=== PATIENT | male | born 1990 | race African-American/Black ===

== ENCOUNTER 2023-12-22 18:12 | Inpatient (IN) ==
--- NOTE | 2023-12-22 18:28 | Emergency Department Note ---
Impression & Plan Seizure, Alcohol withdrawal, Vomiting, History of drug abuse ED Provider Note NAME: REYMUNDO CARTER AGE: 33 SEX: M : 1990 ARRIVES VIA: Ambulance INFORMANT: [Patient][ems] ED PROVIDER(S): [Donavan Doran MD] CHIEF COMPLAINT: Seizure HISTORY OF PRESENT ILLNESS: The patient is a 33-year-old male who presents from [facility]. He has been there for around 2 days. 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 Patient states that he does have a diagnosis of epilepsy. He is on 1000 mg of Depakote twice a day. He has not missed recent dosing. The patient had a seizure last evening and then around 6 today. He did bite his tongue once, no urinary incontinence. He did vomit once. He presents by ambulance. No medications given in route. The patient currently complains of some lower back pain but this is chronic. He has no headache. He is not short of breath, no abdominal pain. He states that the last time he had a seizure, about a months ago, it was detox related as well. PMHx/PSHx/Social Hx: See Below PHYSICAL EXAM: GENERAL: Patient is in no acute distress. HEENT: No acute trauma, normocephalic atraumatic, mucous membranes dry, no nasal congestion. NECK: No stridor, no adenopathy, no meningismus, trachea is midline. LUNGS: Clear to auscultation bilaterally, no wheeze, no rhonchi, breath sounds equal. HEART: Subtle systolic murmur, regular rate and rhythm. ABDOMEN: Soft, nontender, no peritonitis. EXTREMITIES: No cyanosis, full range of motion of all the joints without pain or difficulty. NEUROLOGIC: Oriented x 3, no acute motor or sensory deficits, no focal weakness. SKIN: No jaundice, no diaphoresis. DIFFERENTIAL DIAGNOSIS: Withdrawal, seizure, epilepsy, dehydration, electrolyte imbalance, renal failure, dysrhythmia, among others. EMERGENCY DEPARTMENT PROCEDURES: MEDICAL DECISION MAKING: There is no leukocytosis. A mild anemia was seen. There was a normal platelet count. No renal failure or significant electrolyte abnormality. No concerning liver enzyme elevation. Total CK was not elevated making rhabdomyolysis unlikely. TSH was somewhat low however, the T4 was normal. Urinalysis showed some white cells but no bacteria was seen. Urine tox was positive for amphetamines, benzodiazepines and marijuana. COVID, influenza and RSV test were negative. Chest x-ray did not show pneumonia or CHF. Brain CT showed no acute bleed or mass effect. On exam, the patient appeared slightly dehydrated. He was awake and interactive. He was not febrile. Patient was given IV saline with thiamine, folate and multivitamins. He received 500 mg of IV Depakote. He received a 500 cc saline bolus. He was given 2 mg of IV Ativan. Patient is doing well, he is resting. No seizure activity while here in the ED. The patient is in need of a hospital stay. I suspect his seizures are from withdrawal, likely from his alcohol withdrawal. I did speak with the patient, I did speak with case management. The on-call hospitalist was consulted. Prior/Outside records/notes reviewed: Today's EMS notes describing his presentation and transport to this hospital. ECG per my interpretation: Indication was seizure. The ECG shows a normal sinus rhythm with a rate of 78. There is no acute ST elevation, no PVCs. The QTc is 419. Continuous Cardiac Monitoring per my interpretation: An order was placed for continuous cardiac monitoring. The monitor shows a rate of 81 with normal sinus rhythm. Imaging/x-ray results per my interpretation: Chest x-ray did not show mediastinal widening, pneumonia or pneumothorax. Chronic Medical/Social conditions affecting care: History of drug abuse, history of alcohol abuse. Care/Management discussed with: Case management, the on-call hospitalist. Level of care consideration(s): After review of the information above and other included data: --I believe the patient requires escalation of care to admission DISPOSITION: Admission Past Med/Surg History Problem List (Updated 12/22/23 @ 21:39 by Donavan Doran MD) History of drug abuse (Acute) Vomiting (Acute) Alcohol withdrawal (Acute) Seizure (Acute) Alcohol withdrawal Epilepsy Seizures Medical History Withdrawal seizures Social History Smoking Status: Current every day smoker Tobacco Type: Cigarettes Feels Safe at Home: Yes Allergies Allergies Allergy/AdvReac Type Severity Reaction Status Date / Time acetaminophen Allergy Intermediate Hives Verified 12/22/23 19:02 ibuprofen Allergy Intermediate Hives Verified 12/22/23 19:02 tramadol Allergy Intermediate Hives Verified 12/22/23 19:02 Home Meds Home Medications Medication Instructions Recorded Confirmed albuterol sulfate 90 mcg/actuation 1 inh inhalation Q4H PRN Wheezing 12/22/23 12/22/23 aerosol inhaler aluminum-mag hydroxide-simethicone 20 ml PO BID PRN INDIGESTION/GERD 12/22/23 12/22/23 200 mg-200 mg-20 mg/5 mL oral susp bacitracin 500 unit/gram topical 1 applic topical QID PRN SKIN 12/22/23 12/22/23 ointment INFECTION/ABRASIONS bisacodyl 5 mg tablet 15 mg PO DAILY PRN Constipation 12/22/23 12/22/23 calcium carbonate (Tums) 400 mg PO QID PRN 12/22/23 12/22/23 INDIGESTION/DYSPEPSIA camphor-menthol 0.2 %-3.5 % 1 applic topical QID PRN Muscle 12/22/23 12/22/23 topical gel Pain clonidine HCl 0.1 mg tablet 0.1 mg PO TID PRN 12/22/23 12/22/23 ANXIETY/RESTLESSNESS/HR >70/BP >100/70 dicyclomine 20 mg tablet 20 mg PO TID PRN GI CRAMPS/SPASMS 12/22/23 12/22/23 diphenhydramine HCl 25 mg capsule 25 - 50 mg PO Q6H PRN 12/22/23 12/22/23 (Benadryl) ALLERGIES/RASH divalproex 500 mg tablet,extended 1,000 mg PO BID 12/22/23 12/22/23 release 24 hr (Depakote ER) docusate sodium 100 mg capsule 100 mg PO DAILY PRN Constipation 12/22/23 12/22/23 duloxetine 30 mg capsule,delayed 30 mg PO DAILY 12/22/23 12/22/23 release eucalyptus-menthol oral mucosal 1 nessa mucous membrane Q2H PRN Sore 12/22/23 12/22/23 lozenge Throat famotidine 20 mg tablet 20 mg PO DAILY PRN UPSET 12/22/23 12/22/23 STOMACH/GERD gabapentin 300 mg capsule 600 mg PO TID 12/22/23 12/22/23 guaifenesin 400 mg tablet (Mucus 400 mg PO Q6H PRN COUGH/MUCUS 12/22/23 12/22/23 Relief) hydrocortisone 1 % topical cream 1 applic topical BID PRN AFFECTED 12/22/23 12/22/23 AREA hydroxyzine pamoate 50 mg capsule 50 mg PO TID PRN Anxiety 12/22/23 12/22/23 lithium carbonate 300 mg capsule 300 mg PO BID 12/22/23 12/22/23 loperamide 2 mg tablet (Imodium 4 mg PO BID PRN Diarrhea 12/22/23 12/22/23 A-D) loratadine 10 mg tablet (Claritin) 10 mg PO DAILY PRN SEASONAL 12/22/23 12/22/23 ALLERGIES magnesium hydroxide 400 mg/5 mL 30 ml PO DAILY PRN Constipation 12/22/23 12/22/23 oral suspension (Milk of Magnesia) melatonin 5 mg tablet 5 mg PO HS PRN Sleep 12/22/23 12/22/23 mirtazapine 15 mg tablet 15 mg PO HS 12/22/23 12/22/23 multivitamin 1 tab PO DAILY 12/22/23 12/22/23 naloxone 4 mg/actuation nasal spray 4 mg intranasal DIRECTED PRN 12/22/23 12/22/23 OPIATE OVERDOSE naproxen 500 mg tablet 500 mg PO BID PRN Pain 12/22/23 12/22/23 ondansetron HCl 8 mg tablet 8 mg PO Q8H PRN NAUSEA/VOMITING 12/22/23 12/22/23 polyethylene glycol 3350 17 17 g PO DAILY PRN Constipation 12/22/23 12/22/23 gram/dose oral powder (Miralax) prazosin 1 mg capsule 1 mg PO HS 12/22/23 12/22/23 simethicone 80 mg chewable tablet 160 mg PO BID PRN GAS/CRAMPS 12/22/23 12/22/23 trazodone 50 mg tablet 50 mg PO HS 12/22/23 12/22/23 vitamin A and D 1 applic topical QID PRN SKIN 12/22/23 12/22/23 IRRITATION/PROTECTION Results & Data (ED) Vital Signs Vital Signs - 24 hr 12/22/23 18:22 12/22/23 18:25 12/22/23 18:29 Temperature 36.8 C Temperature Source Oral Pulse Rate 90 81 87 Pulse Rate [Apical] Pulse Rhythm Regular Regular Pulse Strength Normal Respiratory Rate 19 19 Respiratory Effort / Characteristics Non-Labored Spontaneous Respiratory Depth Normal Respiratory Pattern Regular Blood Pressure 144/77 H Blood Pressure [Right Arm] Blood Pressure Mean 99 Blood Pressure Mean [Right Arm] Pulse Oximetry 99 99 Oxygen Delivery Method Room Air Room Air Sepsis Recent Fever Within 48 Hours No Sepsis New/Unexplained Change in Mental Status No Sepsis Action Taken by Nursing No Action Required 12/22/23 19:14 12/22/23 20:19 Temperature 36.9 C Temperature Source Oral Pulse Rate Pulse Rate [Apical] 87 80 Pulse Rhythm Pulse Strength Respiratory Rate 24 19 Respiratory Effort / Characteristics Non-Labored Spontaneous Non-Labored Spontaneous Respiratory Depth Normal Normal Respiratory Pattern Regular Blood Pressure Blood Pressure [Right Arm] 129/81 127/77 Blood Pressure Mean Blood Pressure Mean [Right Arm] 97 93 Pulse Oximetry 100 99 Oxygen Delivery Method Room Air Room Air Sepsis Recent Fever Within 48 Hours Sepsis New/Unexplained Change in Mental Status Sepsis Action Taken by Snf Medications Current Medication List: was personally reviewed by me Laboratory Data Attestation: I reviewed the patient's lab results. 12/22/23 18:20 12/22/23 18:20 Lab Results 12/22/23 12/22/23 12/22/23 Range/Units 18:20 18:27 21:23 WBC 7.76 (4.8-10.8) K/ul RBC 4.35 L (4.70-6.10) M/uL Hgb 12.5 L (14.0-18.0) g/dl POC Hgb 12.6 L (14.0-18.0) g/dl Hct 37.2 L (42.0-52.0) % POC Hct 37 L (42-52) % MCV 85.5 (80.0-100.0) fL MCH 28.7 (25.0-34.0) pg MCHC 33.6 (32.0-36.0) g/dL RDW Std Deviation 42.1 (36.4-46.3) fL RDW Coeff of Hiro 13.4 (11.5-14.5) % Plt Count 284 (130-400) K/uL MPV 9.0 L (9.4-12.4) fL Immature Gran % (Auto) 0.3 % Neut % (Auto) 55.6 % Lymph % (Auto) 34.1 % [place]uel % (Auto) 6.2 % Eos % (Auto) 3.4 % Baso % (Auto) 0.4 % Neut # (Auto) 4.32 (1.40-6.50) K/uL Lymph # (Auto) 2.65 (1.20-3.40) K/uL [place]uel # (Auto) 0.48 (0.11-0.59) K/uL Eos # (Auto) 0.26 (0.00-0.50) K/uL Baso # (Auto) 0.03 (0.00-0.20) K/uL Immature Gran # (Auto) 0.02 (0.01-0.20) K/uL POC Sodium 141 (135-144) mmol/L Sodium 140 (136-145) mmol/L POC Potassium 4.3 (3.3-5.0) mmol/L Potassium 4.3 (3.5-5.1) mmol/L POC Chloride 105 (101-112) mmol/L Chloride 107 (98-107) mmol/L Carbon Dioxide 27 (21-32) mmol/L POC Total CO2 24 (24-31) mmol/L Anion Gap 6 (3-11) POC Anion Gap 18.0 (16-25) mmol/L POC BUN 5 L (7-18) mg/dl BUN 7 (6-23) mg/dl Creatinine 0.99 (0.6-1.4) mg/dl POC Creatinine 1.1 (0.6-1.3) mg/dl Est Cr Clr Drug Dosing 115.6 ml/min Est GFR ( Amer) 115.5 ml/min Est GFR (Non-Af Amer) 99.7 ml/min BUN/Creatinine Ratio 7.1 L (10-20) Glucose 79 (70-99(Fasting)) mg/dl POC Glucose 90 (70-99) mg/dl POC Glucose (other) 81 (70-99) mg/dl Calcium 9.1 (8.6-10.3) mg/dl POC Ioniz Calcium Joellen 1.14 (1.12-1.32) mmol/l Magnesium 2.0 (1.7-2.4) mg/dl Total Bilirubin 0.2 (0.2-1.0) mg/dl AST 11 L (13-39) U/L ALT 7 (7-52) U/L Alkaline Phosphatase 79 (34-104) U/L Total Creatine Kinase 116 (30-223) U/L Total Protein 6.7 (6.0-8.3) gm/dl Albumin 4.0 (3.4-5.0) gm/dl Globulin 2.7 (2.5-4.0) gm/dl Albumin/Globulin Ratio 1.5 (0.9-2) TSH 0.208 L (0.300-4.500) uIu/ml Free T4 0.72 (0.61-1.60) ng/dl Urine Color Urine Appearance (Clear) Urine pH (4.5-7.5) Ur Specific [place] (1.000-1.030) Urine Protein (Negative) Urine Glucose (UA) (Negative) Urine Ketones (Negative) Urine Blood (Negative) Urine Nitrite (Negative) Urine Bilirubin (Negative) Urine Urobilinogen (Negative) Ur Leukocyte Esterase (Negative) Urine WBC (Auto) (0-5) /hpf Urine RBC (Auto) (0-2) /hpf U Hyaline Cast (Auto) (0-2) /lpf U Epithel Cells (Auto) (0-2) /hpf Urine Bacteria (Auto) (None Seen) Urine Opiates Screen (Neg) Ur Methadone, Qual (Neg) Urine Fentanyl Screen (Neg) Urine Barbiturates (Neg) Valproic Acid 84 (50-100) mcg/ml Ur Phencyclidine (PCP) (Neg) U Amphetamin/Meth Scrn (Neg) MDMA (Ecstasy) Screen (Neg) U Benzodiazepines Scrn (Neg) Ur Cocaine Metabolite (Neg) U Marijuana (THC) Screen (Neg) SARS-CoV-2 (PCR) (Negative) Influenza Type A (PCR) (Neg) Influenza Type B (PCR) (Neg) RSV (RT-PCR) (Neg) 12/22/23 Range/Units Unknown WBC (4.8-10.8) K/ul RBC (4.70-6.10) M/uL Hgb (14.0-18.0) g/dl POC Hgb (14.0-18.0) g/dl Hct (42.0-52.0) % POC Hct (42-52) % MCV (80.0-100.0) fL MCH (25.0-34.0) pg MCHC (32.0-36.0) g/dL RDW Std Deviation (36.4-46.3) fL RDW Coeff of Hiro (11.5-14.5) % Plt Count (130-400) K/uL MPV (9.4-12.4) fL Immature Gran % (Auto) % Neut % (Auto) % Lymph % (Auto) % [place] % (Auto) % Eos % (Auto) % Baso % (Auto) % Neut # (Auto) (1.40-6.50) K/uL Lymph # (Auto) (1.20-3.40) K/uL Deuel # (Auto) (0.11-0.59) K/uL Eos # (Auto) (0.00-0.50) K/uL Baso # (Auto) (0.00-0.20) K/uL Immature Gran # (Auto) (0.01-0.20) K/uL POC Sodium (135-144) mmol/L Sodium (136-145) mmol/L POC Potassium (3.3-5.0) mmol/L Potassium (3.5-5.1) mmol/L POC Chloride (101-112) mmol/L Chloride (98-107) mmol/L Carbon Dioxide (21-32) mmol/L POC Total CO2 (24-31) mmol/L Anion Gap (3-11) POC Anion Gap (16-25) mmol/L POC BUN (7-18) mg/dl BUN (6-23) mg/dl Creatinine (0.6-1.4) mg/dl POC Creatinine (0.6-1.3) mg/dl Est Cr Clr Drug Dosing ml/min Est GFR ( Amer) ml/min Est GFR (Non-Af Amer) ml/min BUN/Creatinine Ratio (10-20) Glucose (70-99(Fasting)) mg/dl POC Glucose (70-99) mg/dl POC Glucose (other) (70-99) mg/dl Calcium (8.6-10.3) mg/dl POC Ioniz Calcium Joellen (1.12-1.32) mmol/l Magnesium (1.7-2.4) mg/dl Total Bilirubin (0.2-1.0) mg/dl AST (13-39) U/L ALT (7-52) U/L Alkaline Phosphatase (34-104) U/L Total Creatine Kinase (30-223) U/L Total Protein (6.0-8.3) gm/dl Albumin (3.4-5.0) gm/dl Globulin (2.5-4.0) gm/dl Albumin/Globulin Ratio (0.9-2) TSH (0.300-4.500) uIu/ml Free T4 (0.61-1.60) ng/dl Urine Color Yellow Urine Appearance Clear (Clear) Urine pH 7.5 (4.5-7.5) Ur Specific [place] 1.019 (1.000-1.030) Urine Protein Negative (Negative) Urine Glucose (UA) Negative (Negative) Urine Ketones Trace H (Negative) Urine Blood Negative (Negative) Urine Nitrite Negative (Negative) Urine Bilirubin Negative (Negative) Urine Urobilinogen Negative (Negative) Ur Leukocyte Esterase 1+ H (Negative) Urine WBC (Auto) 11-20 H (0-5) /hpf Urine RBC (Auto) 0-2 (0-2) /hpf U Hyaline Cast (Auto) 0-2 (0-2) /lpf U Epithel Cells (Auto) 0-2 (0-2) /hpf Urine Bacteria (Auto) None Seen (None Seen) Urine Opiates Screen Neg (Neg) Ur Methadone, Qual Neg (Neg) Urine Fentanyl Screen Neg (Neg) Urine Barbiturates Neg (Neg) Valproic Acid (50-100) mcg/ml Ur Phencyclidine (PCP) Neg (Neg) U Amphetamin/Meth Scrn Pos H (Neg) MDMA (Ecstasy) Screen Neg (Neg) U Benzodiazepines Scrn Pos H (Neg) Ur Cocaine Metabolite Neg (Neg) U Marijuana (THC) Screen Pos H (Neg) SARS-CoV-2 (PCR) NEGATIVE (Negative) Influenza Type A (PCR) Negative (Neg) Influenza Type B (PCR) Negative (Neg) RSV (RT-PCR) Negative (Neg) Administered Medications Discontinued Medications Multivitamins 10 ml/ Thiamine HCl 100 mg/ Folic Acid 1 mg/Sodium Chloride 1,011.2 mls @ 500 mls/hr IV .Q2H2M ONE Stop: 12/22/23 20:24 Last Infusion: 12/22/23 21:25 Dose: Infused Documented By: Admin: 12/22/23 19:20 Dose: 500 mls/hr Documented By: MALIA Valproic Acid 500 mg/ Dextrose 55 mls @ 55 mls/hr IV NOW STA Stop: 12/22/23 19:22 Last Infusion: 12/22/23 20:39 Dose: Infused Documented By: Admin: 12/22/23 18:50 Dose: 55 mls/hr Documented By: JAROCHO Sodium Chloride (Nss) 500 mls @ 999 mls/hr IV .Q31M ONE Stop: 12/22/23 18:58 Last Infusion: 12/22/23 19:23 Dose: Infused Documented By: Admin: 12/22/23 18:33 Dose: 999 mls/hr Documented By: MALIA Lorazepam (Lorazepam 1 Mg/1 Ml Syr Ed Inj Use) 2 mg IV ONE STA Stop: 12/22/23 18:24 Last Admin: 12/22/23 18:30 Dose: 2 mg Documented By: MALIA Imaging Data Radiologist's Impression: Head CT 12/22/23 18:23 CT head/brain wo con CLINICAL HISTORY: seizure Technique: Contiguous axial CT images of the head were acquired from the base of the skull to the vertex without intravenous contrast administration. Images were viewed in brain, subdural and bone windows. Automated dose lowering techniques and/or adjustment according to patient size were utilized for this exam. Comparison: None available at the time of this dictation. Findings: The ventricles, basal cisterns, and cerebral sulci are normal. There is no acute intracranial hemorrhage or evidence of acute territorial infarction. Neither mass effect, shift of the midline structures, nor abnormal extra-axial fluid collections are shown. Right sinus opacification is seen. The orbits appear normal. There are no acute fractures of the calvaria or scalp swelling. Impression: 1. No acute intracranial hemorrhage, no evidence of acute territorial infarction or other acute intracranial disease process. 2. Right paranasal sinus disease. ACT 112: Negative or not required by law. Electronically signed by: Dontae Giang M.D. 12/22/2023 7:47 PM Chest X-Ray 12/22/23 18:25 XR chest 1V portable CLINICAL HISTORY: weakness TECHNIQUE: Single frontal radiograph of the chest was obtained. Comparison: None available at the time of this dictation. FINDINGS: No lines and tubes are seen. The cardiomediastinal silhouette is normal. The lungs are clear. No evidence of pleural effusion or pneumothorax. IMPRESSION: No acute chest disease. ACT 112: Negative or not required by law. Electronically signed by: Dontae Giang M.D. 12/22/2023 6:41 PM Discharge Plan Visit Data Chief Complaint: Seizure Stated Complaint: DETOXING, SEIZURES ED Provider: Donavan Doran Discharge Problem: Seizure, Alcohol withdrawal, Vomiting, History of drug abuse Patient Disposition: Admitted As Inpatient Condition: Fair Forms Stand Alone Forms: [facility] Prescriptions Prescriptions: No Action multivitamin Tablet 1 tab PO DAILY clonidine HCl 0.1 mg Tablet 0.1 mg PO TID PRN (Reason: ANXIETY/RESTLESSNESS/HR >70/BP >100/70) trazodone 50 mg Tablet 50 mg PO HS prazosin 1 mg Capsule 1 mg PO HS ondansetron HCl [Zofran] 8 mg Tablet 8 mg PO Q8H PRN (Reason: NAUSEA/VOMITING) vitamin A and D Ointment 1 applic TOPICAL QID PRN (Reason: SKIN IRRITATION/PROTECTION) loperamide [Imodium A-D] 2 mg Tablet 4 mg PO BID PRN (Reason: Diarrhea) hydroxyzine pamoate 50 mg Capsule 50 mg PO TID PRN (Reason: Anxiety) bacitracin 500 unit/gram Ointment 1 applic TOPICAL QID PRN (Reason: SKIN INFECTION/ABRASIONS) famotidine 20 mg Tablet 20 mg PO DAILY PRN (Reason: UPSET STOMACH/GERD) magnesium hydroxide [Milk of Magnesia] 400 mg/5 mL Suspension 30 ml PO DAILY PRN (Reason: Constipation) dicyclomine 20 mg Tablet 20 mg PO TID PRN (Reason: GI CRAMPS/SPASMS) lithium carbonate 300 mg Capsule 300 mg PO BID hydrocortisone [Cortaid Maximum Strength] 1 % Cream 1 applic TOPICAL BID PRN (Reason: AFFECTED AREA) diphenhydramine HCl [Benadryl] 25 mg Capsule 25 - 50 mg PO Q6H PRN (Reason: ALLERGIES/RASH) divalproex [Depakote ER] 500 mg Tablet Extended Release 24 Hr 1,000 mg PO BID calcium carbonate [Tums] 200 mg calcium (500 mg) Tablet,Chewable 400 mg PO QID PRN (Reason: INDIGESTION/DYSPEPSIA) docusate sodium 100 mg Capsule 100 mg PO DAILY PRN (Reason: Constipation) gabapentin 300 mg Capsule 600 mg PO TID mirtazapine 15 mg Tablet 15 mg PO HS alum-mag hydroxide-simeth [Maalox] 200-200-20 mg/5 mL Suspension 20 ml PO BID PRN (Reason: INDIGESTION/GERD) polyethylene glycol 3350 [Miralax] 17 gram/dose Powder 17 g PO DAILY PRN (Reason: Constipation) albuterol sulfate 90 mcg/actuation Hfa Aerosol Inhaler 1 inh INHALATION Q4H PRN (Reason: Wheezing) loratadine [Claritin] 10 mg Tablet 10 mg PO DAILY PRN (Reason: SEASONAL ALLERGIES) naproxen 500 mg Tablet 500 mg PO BID PRN (Reason: Pain) simethicone [Gas-X] 80 mg Tablet,Chewable 160 mg PO BID PRN (Reason: GAS/CRAMPS) bisacodyl 5 mg Tablet 15 mg PO DAILY PRN (Reason: Constipation) [place] Cough Drops Lozenge 1 nessa MUCOUS MEMBRANE Q2H PRN (Reason: Sore Throat) guaifenesin [Mucus Relief] 400 mg Tablet 400 mg PO Q6H PRN (Reason: COUGH/MUCUS) duloxetine 30 mg Capsule,Delayed Release(Dr/Ec) 30 mg PO DAILY melatonin 5 mg Tablet 5 mg PO HS PRN (Reason: Sleep) Biofreeze 0.2-3.5 % Gel 1 applic TOPICAL QID PRN (Reason: Muscle Pain) Rx Instructions: rub in gently and completely naloxone 4 mg/actuation [place],Non-Aerosol 4 mg INTRANASAL DIRECTED MDD 6 SPRAYS PRN (Reason: OPIATE OVERDOSE) Referrals Referrals: PCP,NO [Physician] - Discharge Problem: Alcohol withdrawal Qualifiers: Complication of substance-induced condition: with unspecified complication Q ualified Code(s): F10.939 - Alcohol use, unspecified with withdrawal, unspecified Vomiting Qualifiers: Vomiting type: unspecified Nausea presence: with nausea Qualified Code(s): R 11.2 - Nausea with vomiting, unspecified
[2023-12-22] MEDS: LORazepam 1 MG/1 ML SYR ED Inj Use IV STA (18:30)
[2023-12-22] MEDS: SODIUM CHLORIDE 0.9% 500 ML IV ONE (18:33)
[2023-12-22 18:39] LABS: iSTAT Creatinine 1.1 mg/dl (0.6-1.3); iSTAT Hemoglobin 12.6 g/dl (14.0-18.0); iSTAT Ionized Calcium 1.14 mmol/l (1.12-1.32); iSTAT Potassium 4.3 mmol/L (3.3-5.0)
[2023-12-22 18:39] LABS: Basophils # (auto) 0.03 K/uL (0.00-0.20); Basophils % (auto) 0.4 %; Eosinophils # (auto) 0.26 K/uL (0.00-0.50); Eosinophils % (auto) 3.4 %; Hematocrit (blood only) 37.2 % (42.0-52.0); Hemoglobin 12.5 g/dl (14.0-18.0); Immature Granulocytes # (auto) 0.02 K/uL (0.01-0.20); Immature Granulocytes % (auto) 0.3 %; Lymphocytes # (auto) 2.65 K/uL (1.20-3.40); Lymphocytes % (auto) 34.1 %; Mean Corpuscular Hemoglobin 28.7 pg (25.0-34.0); Mean Corpuscular Hgb Conc 33.6 g/dL (32.0-36.0); Mean Corpuscular Volume 85.5 fL (80.0-100.0); Monocytes # (auto) 0.48 K/uL (0.11-0.59); Monocytes % (auto) 6.2 %; Neutrophils # (auto) 4.32 K/uL (1.40-6.50); Neutrophils % (auto) 55.6 %; Platelet Count 284 K/uL (130-400); RDW Coefficient of Variation 13.4 % (11.5-14.5); RDW Standard Deviation 42.1 fL (36.4-46.3); Red Blood Count 4.35 M/uL (4.70-6.10); White Blood Count 7.76 K/ul (4.8-10.8)
--- NOTE | 2023-12-22 18:43 | XRay Report ---
XR chest 1V portable CLINICAL HISTORY: weakness TECHNIQUE: Single frontal radiograph of the chest was obtained. Comparison: None available at the time of this dictation. FINDINGS: No lines and tubes are seen. The cardiomediastinal silhouette is normal. The lungs are clear. No evid ence of pleural effusion or pneumothorax. IMPRESSION: No acute chest disease. ACT 112: Negative or not required by law. Electronically signed by: Dontae Giang M.D. 12/22/2023 6:41 PM
[2023-12-22] MEDS: VALPROATE SOD 500 MG in DEXTROSE 5% 50 ML IV STA (18:50)
[2023-12-22 18:54] LABS: Albumin Globulin Ratio 1.5 (0.9-2); BUN Creatinine Ratio 7.1 (10-20); Bilirubin,Total 0.2 mg/dl (0.2-1.0); Calcium 9.1 mg/dl (8.6-10.3); Creatinine Clr Calc Pharmacy 115.6 ml/min; Est GFR (African American) 115.5 ml/min; Est GFR (Non-African American) 99.7 ml/min; Globulin 2.7 gm/dl (2.5-4.0); Potassium 4.3 mmol/L (3.5-5.1); Total Protein 6.7 gm/dl (6.0-8.3)
[2023-12-22 19:09] LABS: Thyroid Stimulating Hormone 0.208 uIu/ml (0.300-4.500)
[2023-12-22] MEDS: MULTI-VITAMIN INFUSION 10 ML, THIAMINE HCL 100 MG, FOLIC ACID 1 MG in SODIUM CHLORIDE 0... IV ONE (19:20)
[2023-12-22 19:45] LABS: T4 Free Thyroxine 0.72 ng/dl (0.61-1.60)
--- NOTE | 2023-12-22 19:48 | CT Scan Report ---
CT head/brain wo con CLINICAL HISTORY: seizure Technique: Contiguous axial CT images of the head were acquired from the base of the skull to the raquel tj without intravenous contrast administration. Images were viewed in brain, subdural and bone [facility]. Automated dose lowering techniques and/or adjustment according to patient size were utilized for this exam. Comparison: None available at the time of this dictation. Findings: The ventricles, basal cisterns, and cerebral sulci are normal. There is no acute intracranial hemorrh age or evidence of acute territorial infarction. Neither mass effect, shift of the midline structures , nor abnormal extra-axial fluid collections are shown. Right sinus opacification is seen. The orbits appear normal. There are no acute fractures of the calv aria or scalp swelling. Impression: 1. No acute intracranial hemorrhage, no evidence of acute territorial infarction or other acute intr acranial disease process. 2. Right paranasal sinus disease. ACT 112: Negative or not required by law. Electronically signed by: Dontae Giang M.D. 12/22/2023 7:47 PM
--- NOTE | 2023-12-22 19:49 | History & Physical Report ---
Date of Service December 22, 2023 Assessment & Plan (1) Withdrawal seizures: Plan: Patient sent in from [facility] for 6-7 consecutive seizures on 12/21 Currently withdrawing from methamphetamine, alcohol, marijuana, cocaine Hx of seizures with prior withdrawals; patient currently denies seizures outside of withdrawal No leukocytosis; afebrile Urine drug screen ordered, pending Valproic acid levels WNL; will defer loading dose Convert all po meds to IV where possible Glucose 79 on arrival; BSG checks q6h and D5LR at 80mL/hr x 1 L overnight Ativan 1 g IV q4h scheduled x 24h Discussed with both Neurology and Dr. Ellis Ativan 2 g IV q5m as needed for active seizures x 3 max doses Communication order to reach out to provider for active seizures Depacon 500mg IV q6h Seizure precautions A.m. CBC, BMP, mag (2) Epilepsy: Plan: Patient reports history of epilepsy Is currently on Depakote 1000 mg p.o. BID Spoke with pharmacy; will switch to Depakote 500mg IV q6h for now (3) Alcohol withdrawal: Plan: Given timeline (2 days at [facility]), suspect alcohol withdrawal is the main one contributing at this time Thiamine 500mg IV x 1 AWSS protocol; ativan as outlined above Daily thiamine and folate supplementation Plan Disposition: Admit to PCU Full code VTE PPx: SCDs Diet: Initially listed patient as n.p.o., however per nursing, patient was threatening to sign out AMA if he couldn't eat; upon reassessment, will put in for regular diet. History of Present Illness Chief Complaint: Withdrawal seizures Primary Care Provider: MONICA PCP Charly is a 33-year-old male with PMH of withdrawal seizures, methamphetamine use, alcohol use, and cocaine use. He presented on 12/21 from [facility] for active seizures. Patient recently checked into CHF symptoms on 12/19 for withdrawal. At time of admission, patient is a poor historian as he is very lethargic/dazed and does not fully respond to questioning. He does endorse having 6-7 seizures today each lasting 30-60 seconds. He reports he has never had a seizure outside of withdrawal. He endorses biting his tongue. And is unsure of urinary incontinence. Patient reports he took his Depakote this morning. He denies any recent injuries to his head or neck. Patient's vitals are stable at time of admission. ED course: Depacon 500 mg IV Lorazepam 2 mg IV Banana bag x 1 NSS 500 mL IV Difficult to obtain ROS in patient's current state, however he denies fevers, chest pain, SOB, or abdominal pain. Please see Dr. Ellis's attestation for any changes in to treatment plan. Allergies Allergy/AdvReac Type Severity Reaction Status Date / Time acetaminophen Allergy Intermediate Hives Verified 12/22/23 19:02 ibuprofen Allergy Intermediate Hives Verified 12/22/23 19:02 tramadol Allergy Intermediate Hives Verified 12/22/23 19:02 Home Medications Medication Instructions Recorded Confirmed Type albuterol sulfate 90 mcg/actuation 1 inh inhalation Q4H PRN Wheezing 12/22/23 12/22/23 History aerosol inhaler aluminum-mag hydroxide-simethicone 20 ml PO BID PRN INDIGESTION/GERD 12/22/23 12/22/23 History 200 mg-200 mg-20 mg/5 mL oral susp bacitracin 500 unit/gram topical 1 applic topical QID PRN SKIN 12/22/23 12/22/23 History ointment INFECTION/ABRASIONS bisacodyl 5 mg tablet 15 mg PO DAILY PRN Constipation 12/22/23 12/22/23 History calcium carbonate (Tums) 400 mg PO QID PRN 12/22/23 12/22/23 History INDIGESTION/DYSPEPSIA camphor-menthol 0.2 %-3.5 % 1 applic topical QID PRN Muscle 12/22/23 12/22/23 History topical gel Pain clonidine HCl 0.1 mg tablet 0.1 mg PO TID PRN 12/22/23 12/22/23 History ANXIETY/RESTLESSNESS/HR >70/BP >100/70 dicyclomine 20 mg tablet 20 mg PO TID PRN GI CRAMPS/SPASMS 12/22/23 12/22/23 History diphenhydramine HCl 25 mg capsule 25 - 50 mg PO Q6H PRN 12/22/23 12/22/23 History (Benadryl) ALLERGIES/RASH divalproex 500 mg tablet,extended 1,000 mg PO BID 12/22/23 12/22/23 History release 24 hr (Depakote ER) docusate sodium 100 mg capsule 100 mg PO DAILY PRN Constipation 12/22/23 12/22/23 History duloxetine 30 mg capsule,delayed 30 mg PO DAILY 12/22/23 12/22/23 History release eucalyptus-menthol oral mucosal 1 nessa mucous membrane Q2H PRN Sore 12/22/23 12/22/23 History lozenge Throat famotidine 20 mg tablet 20 mg PO DAILY PRN UPSET 12/22/23 12/22/23 History STOMACH/GERD gabapentin 300 mg capsule 600 mg PO TID 12/22/23 12/22/23 History guaifenesin 400 mg tablet (Mucus 400 mg PO Q6H PRN COUGH/MUCUS 12/22/23 12/22/23 History Relief) hydrocortisone 1 % topical cream 1 applic topical BID PRN AFFECTED 12/22/23 12/22/23 History AREA hydroxyzine pamoate 50 mg capsule 50 mg PO TID PRN Anxiety 12/22/23 12/22/23 History lithium carbonate 300 mg capsule 300 mg PO BID 12/22/23 12/22/23 History loperamide 2 mg tablet (Imodium 4 mg PO BID PRN Diarrhea 12/22/23 12/22/23 History A-D) loratadine 10 mg tablet (Claritin) 10 mg PO DAILY PRN SEASONAL 12/22/23 12/22/23 History ALLERGIES magnesium hydroxide 400 mg/5 mL 30 ml PO DAILY PRN Constipation 12/22/23 12/22/23 History oral suspension (Milk of Magnesia) melatonin 5 mg tablet 5 mg PO HS PRN Sleep 12/22/23 12/22/23 History mirtazapine 15 mg tablet 15 mg PO HS 12/22/23 12/22/23 History multivitamin 1 tab PO DAILY 12/22/23 12/22/23 History naloxone 4 mg/actuation nasal spray 4 mg intranasal DIRECTED PRN 12/22/23 12/22/23 History OPIATE OVERDOSE naproxen 500 mg tablet 500 mg PO BID PRN Pain 12/22/23 12/22/23 History ondansetron HCl 8 mg tablet 8 mg PO Q8H PRN NAUSEA/VOMITING 12/22/23 12/22/23 History polyethylene glycol 3350 17 17 g PO DAILY PRN Constipation 12/22/23 12/22/23 History gram/dose oral powder (Miralax) prazosin 1 mg capsule 1 mg PO HS 12/22/23 12/22/23 History simethicone 80 mg chewable tablet 160 mg PO BID PRN GAS/CRAMPS 12/22/23 12/22/23 History trazodone 50 mg tablet 50 mg PO HS 12/22/23 12/22/23 History vitamin A and D 1 applic topical QID PRN SKIN 12/22/23 12/22/23 History IRRITATION/PROTECTION Past Med/Surg History Problem List (Updated 12/22/23 @ 21:39 by Donavan Doran MD) History of drug abuse (Acute) Vomiting (Acute) Alcohol withdrawal (Acute) Seizure (Acute) Alcohol withdrawal Epilepsy Seizures Medical History Withdrawal seizures Social History Smoking Status: Current every day smoker Tobacco Type: Cigarettes Second Hand Exposure: Yes; Tobacco Cessation Education Requested by Patient: No Hx Alcohol Use: Yes Alcohol type: beer and wine Hx Substance Use: Yes Last Used Substance: Days (ago) Preferred Language: Uzbek Communication Ability: Effective 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 Beliefs That Will Affect Care: None Current Living Situation: Other Current Living Situation Comment: [facility] Other Information That Helps Us Care for You: No Feels Safe at Home: Yes Safety Concerns: Feels Safe At This Time Assistive Devices: None Review of Systems Review of Systems: See HPI above Physical Exam Physical Exam: General: Patient is lethargic, and can barely opens eyes when talking; dazed; responds to painful stimuli /sternal rub; no acute distress; cooperative; SpO2 99% on RA HEENT: normocephalic, atraumatic; no scleral icterus; PERRLA w/ EOMs intact; vision and hearing grossly intact Neck: supple; no lymphadenopathy; trachea midline Skin: warm, dry without signs of tenting; no cyanosis; no rashes, bruising, lesions, or erythema noted CV: chest wall NTP; RRR; S1/S2 normal; no murmurs/rubs/gallops; pulses intact and symmetric at radial, DP, and PT Lungs: no acute respiratory distress; symmetrical chest wall expansion; clear breath sounds across all lung [place] w/o adventitious sounds; no wheezing ABD: Soft, NTP; BS present; no rebound/guarding; no distention MSK: no tics or fasciculations; no edema noted in the LEs b/l, nonerythematous Neuro: Patient appears dazed and does not respond to some questioning; A&Ox3; normal mood and affect; fluent speech; reports sensation is intact and symmetric in the LEs B/L Results & Data Results & Data Vital Signs (Past 12 Hours) Vital Signs Temp Pulse Pulse Resp BP BP Pulse Ox 12/22/23 19:14 87 24 129/81 100 12/22/23 18:29 87 19 99 12/22/23 18:25 81 12/22/23 18:22 36.8 C 90 19 144/77 H 99 O2 Del Method 12/22/23 19:14 Room Air 12/22/23 18:29 Room Air 12/22/23 18:25 12/22/23 18:22 Room Air Laboratory Results Abnormal lab results 12/22/23 12/22/23 Range/Units 18:20 18:27 RBC 4.35 L (4.70-6.10) M/uL Hgb 12.5 L (14.0-18.0) g/dl POC Hgb 12.6 L (14.0-18.0) g/dl Hct 37.2 L (42.0-52.0) % POC Hct 37 L (42-52) % MPV 9.0 L (9.4-12.4) fL POC BUN 5 L (7-18) mg/dl BUN/Creatinine Ratio 7.1 L (10-20) AST 11 L (13-39) U/L TSH 0.208 L (0.300-4.500) uIu/ml Diagnostic Findings Head CT 12/22/23 18:23 CT head/brain wo con CLINICAL HISTORY: seizure Technique: Contiguous axial CT images of the head were acquired from the base of the skull to the vertex without intravenous contrast administration. Images were viewed in brain, subdural and bone windows. Automated dose lowering techniques and/or adjustment according to patient size were utilized for this exam. Comparison: None available at the time of this dictation. Findings: The ventricles, basal cisterns, and cerebral sulci are normal. There is no acute intracranial hemorrhage or evidence of acute territorial infarction. Neither m ass effect, shift of the midline structures, nor abnormal extra-axial fluid collections are shown. Right sinus opacification is seen. The orbits appear normal. There are no acute fractures of the calvaria or scalp swelling. Impression: 1. No acute intracranial hemorrhage, no evidence of acute territorial infarction or other acute intracranial disease process. 2. Right paranasal sinus disease. ACT 112: Negative or not required by law. Electronically signed by: Dontae Giang M.D. 12/22/2023 7:47 PM Chest X-Ray 12/22/23 18:25 XR chest 1V portable CLINICAL HISTORY: weakness TECHNIQUE: Single frontal radiograph of the chest was obtained. Comparison: None available at the time of this dictation. FINDINGS: No lines and tubes are seen. The cardiomediastinal silhouette is normal. The lungs are clear. No evidence of pleural effusion or pneumothorax. IMPRESSION: No acute chest disease. ACT 112: Negative or not required by law. Electronically signed by: Dontae Giang M.D. 12/22/2023 6:41 PM ECG Additional Comments: ECG revealed NSR at 70 bpm; QTc 419 Code Status & VTE Plan Code Status Full code VTE Prophylaxis Plan VTE Prophylaxis will be ordered: Yes Supervising Physician Co-Signing Physician Notes Attending addendum: I have physically seen this patient, have supervised the EDMOND's activities, and agree with the H&P unless as otherwise noted. Assessment and Plan: Alcohol withdrawal seizures/seizure disorder history Patient referred from [facility] for approximately 6-7 seizures during the day He presently is therefore in treatment for addiction for methamphetamine, alcohol, marijuana and cocaine history of previous withdrawal seizures From the ED received the following: Banana bag, lorazepam 2 mg IV, valproic acid 500 mg IV, and NSS 500 mill bolus Placed on lorazepam 1 g IV every 4 hours x 24 hours AWSS protocol with IV Ativan Lorazepam 2 g IV every 5 minutes times max of 3 doses for seizure activity Depacon 5 mg IV every 6 hours Thiamine 100 mg IV daily Folic acid 1 mg IV daily Consults to neurology Seizure disorder- Changing Depakote 1000 mg p.o. twice daily to Depakote 500 mg IV every 6 hours until patient is taking p.o. Remaining orders and notations as noted PG Care Time/CCT Total # of Minutes Spent Total Time Spent with Patient: Total time spent is greater than 50% in coordination of care (as documented) at patient's floor/unit and/or counseling patient: [place] [address] INT INP/OBS CARE MIN Patient Type New Medical Decision Making High Complexity Diagnoses Withdrawal seizures F19.939; R56.9 Epilepsy G40.909 Alcohol withdrawal F10.939
[2023-12-22 20:31] LABS: Influenza A virus by PCR Negative (Neg); Influenza B virus by PCR Negative (Neg); RSV by PCR Negative (Neg); SARS CoV2 RNA(COVID-19) Ceph NEGATIVE (Negative)
[2023-12-22 20:50] LABS: Appearance Urine Clear (Clear); Bacteria Urine Automated None Seen (None Seen); Bilirubin Urine Negative (Negative); Blood Urine Negative (Negative); Cast Urine Automated 0-2 /lpf (0-2); Color Urine Yellow; Epithelial Cell Urine Auto 0-2 /hpf (0-2); Glucose Urine UA Negative (Negative); Ketones Urine Trace (Negative); Leukocyte Esterase Urine 1+ (Negative); Nitrite Urine Negative (Negative); Protein Urine Negative (Negative); RBC Urine Automated 0-2 /hpf (0-2); Specific Gravity Urine 1.019 (1.000-1.030); Urobilinogen Urine Negative (Negative); pH Urine 7.5 (4.5-7.5)
[2023-12-22 21:20] LABS: Amphetamines+Metham, Urine Pos (Neg); Barbiturates, Urine Neg (Neg); Benzodiazepine, Urine Pos (Neg); Cocaine, Urine Neg (Neg); Fentanyl, Urine Neg (Neg); MDMA (Ecstacy), Urine Neg (Neg); Marijuana, Urine Pos (Neg); Methadone, Urine Neg (Neg); Opiate, Urine Neg (Neg); Phencyclidine, Urine Neg (Neg)
[2023-12-22] MEDS ORDERED: ONDANSETRON INJ 2 MG/ML 2 ML VIAL IV PRN (21:41)
[2023-12-22] MEDS ORDERED: ALBUTEROL HFA 8 GM INHALER INH PRN (21:41)
[2023-12-22] MEDS ORDERED: LORazepam 2 MG in SYRINGE 1 ML IV PRN (21:41)
[2023-12-22] MEDS ORDERED: BACITRACIN OINT 14 GM TUBE TOP PRN (21:41)
[2023-12-22] MEDS: D5W AND LACTATED RINGERS 1,000 ML IV SCH (22:06)
[2023-12-22] MEDS ORDERED: HYDROCORTISONE 1% CRM 30 GM TUBE EXT PRN (22:13)
[2023-12-22] MEDS ORDERED: COUGH DROP (SUGAR FREE) LOZ 24 LOZ/1 BOX BUCCAL PRN (22:14)
[2023-12-22] MEDS: LITHIUM CARBONATE 300 MG TAB PO SCH (22:30)
[2023-12-22] MEDS: THIAMINE HCL 500 MG in SODIUM CHLORIDE 0.9% 50 ML IV STA (22:31)
[2023-12-22] MEDS: LORazepam 1 MG in SYRINGE 0.5 ML IV SCH (22:50)
[2023-12-23] MEDS: VALPROATE SOD 500 MG in DEXTROSE 5% 50 ML IV SCH (01:40)
--- NOTE | 2023-12-23 07:09 | Hospitalist Progress Note ---
Date of Service December 23, 2023 Assessment & Plan Plan Withdrawal seizures: Plan: Patient sent in from [facility] for 6-7 consecutive seizures on 12/21 Currently withdrawing from methamphetamine, alcohol, marijuana, cocaine Hx of seizures with prior withdrawals; patient currently denies seizures outside of withdrawal No leukocytosis; afebrile Urine drug screen ordered, pending Valproic acid levels WNL; will defer loading dose Convert all po meds to IV where possible Glucose 79 on arrival; BSG checks q6h and D5LR at 80mL/hr x 1 L overnight Ativan 1 g IV q4h scheduled x 24h Discussed with both Neurology and Dr. Ellis Ativan 2 g IV q5m as needed for active seizures x 3 max doses Communication order to reach out to provider for active seizures Depacon 500mg IV q6h Seizure precautions A.m. CBC, BMP, mag (2) Epilepsy: Plan: Patient reports history of epilepsy Is currently on Depakote 1000 mg p.o. BID Spoke with pharmacy; will switch to Depakote 500mg IV q6h for now (3) Alcohol withdrawal: Plan: Given timeline (2 days at [facility]), suspect alcohol withdrawal is the main one contributing at this time Thiamine 500mg IV x 1 AWSS protocol; ativan as outlined above Daily thiamine and folate supplementation Admission and Anticipated Discharge Date Admission Date: December 22, 2023 Results & Data Results & Data Vital Signs (Past 12 Hours) Vital Signs Temp Pulse Pulse Resp BP Pulse Ox O2 Del Method 12/23/23 06:09 36.7 C 63 16 138/73 99 Room Air 12/23/23 02:04 36.3 C L 64 18 144/88 H 99 Room Air 12/22/23 22:15 Room Air 12/22/23 22:04 36.6 C 76 18 121/76 100 Room Air 12/22/23 21:56 76 12/22/23 20:19 36.9 C 80 19 127/77 99 Room Air 12/22/23 19:14 87 24 129/81 100 Room Air
[2023-12-23 07:24] LABS: Basophils # (auto) 0.03 K/uL (0.00-0.20); Basophils % (auto) 0.5 %; Eosinophils # (auto) 0.23 K/uL (0.00-0.50); Eosinophils % (auto) 3.5 %; Hematocrit (blood only) 38.3 % (42.0-52.0); Immature Granulocytes # (auto) 0.02 K/uL (0.01-0.20); Immature Granulocytes % (auto) 0.3 %; Lymphocytes # (auto) 2.21 K/uL (1.20-3.40); Lymphocytes % (auto) 33.8 %; Mean Corpuscular Hemoglobin 28.7 pg (25.0-34.0); Mean Corpuscular Hgb Conc 33.9 g/dL (32.0-36.0); Mean Corpuscular Volume 84.5 fL (80.0-100.0); Mean Platelet Volume 8.8 fL (9.4-12.4); Monocytes # (auto) 0.43 K/uL (0.11-0.59); Monocytes % (auto) 6.6 %; Neutrophils # (auto) 3.62 K/uL (1.40-6.50); Neutrophils % (auto) 55.3 %; Platelet Count 273 K/uL (130-400); RDW Coefficient of Variation 13.4 % (11.5-14.5); RDW Standard Deviation 41.7 fL (36.4-46.3); Red Blood Count 4.53 M/uL (4.70-6.10); White Blood Count 6.54 K/ul (4.8-10.8)
[2023-12-23 07:57] LABS: BUN Creatinine Ratio 4.8 (10-20); Calcium 9.1 mg/dl (8.6-10.3); Est GFR (African American) 133.3 ml/min; Magnesium 2.1 mg/dl (1.7-2.4); Potassium 4.4 mmol/L (3.5-5.1)
[2023-12-23] MEDS: FOLIC ACID 1 MG in SYRINGE 9.8 ML IV SCH (08:11)
[2023-12-23] MEDS: THIAMINE HCL 100 MG in SYRINGE 9 ML IV SCH (08:11)
[2023-12-23] MEDS ORDERED: chlordiazePOXIDE HCl 25 MG CAP PO ONE (10:06)
--- NOTE | 2023-12-23 10:07 | Discharge Summary ---
Date of Service December 23, 2023 Admission HPI Per Admitting Provider Charly is a 33-year-old male with PMH of withdrawal seizures, methamphetamine use, alcohol use, and cocaine use. He presented on 12/21 from [facility] for active seizures. Patient recently checked into CHF symptoms on 12/19 for withdrawal. At time of admission, patient is a poor historian as he is very lethargic/dazed and does not fully respond to questioning. He does endorse having 6-7 seizures today each lasting 30-60 seconds. He reports he has never had a seizure outside of withdrawal. He endorses biting his tongue. And is unsure of urinary incontinence. Patient reports he took his Depakote this mor fariha. He denies any recent injuries to his head or neck. Patient's vitals are stable at time of admission. ED course: Depacon 500 mg IV Lorazepam 2 mg IV Banana bag x 1 NSS 500 mL IV Difficult to obtain ROS in patient's current state, however he denies fevers, chest pain, SOB, or abdominal pain. Please see Dr. Ellis's attestation for any changes in to treatment plan. Admission Exam Per Admitting Provider General: Patient is lethargic, and can barely opens eyes when talking; dazed; responds to painful stimuli /sternal rub; no acute distress; cooperative; SpO2 99% on RA HEENT: normocephalic, atraumatic; no scleral icterus; PERRLA w/ EOMs intact; vision and hearing grossly intact Neck: supple; no lymphadenopathy; trachea midline Skin: warm, dry without signs of tenting; no cyanosis; no rashes, bruising, lesions, or erythema noted CV: chest wall NTP; RRR; S1/S2 normal; no murmurs/rubs/gallops; pulses intact and symmetric at radial, DP, and PT Lungs: no acute respiratory distress; symmetrical chest wall expansion; clear breath sounds across all lung [place] w/o adventitious sounds; no wheezing ABD: Soft, NTP; BS present; no rebound/guarding; no distention MSK: no tics or fasciculations; no edema noted in the LEs b/l, nonerythematous Neuro: Patient appears dazed and does not respond to some questioning; A&Ox3; normal mood and affect; fluent speech; reports sensation is intact and symmetric in the LEs B/L Principal Diagnosis Seizure, substance use, withdrawal Discharge Exam General:Alert and oriented, no acute distress, HEENT: Normocephalic, moist oral mucosa, Cardio: Regular rate and rhythm, no murmur, Resp:Lungs clear to auscultation b/l, no wheezes or rhonchi, Skin: Warm, pink, dry, Discharge Data Allergies Allergy/AdvReac Type Severity Reaction Status Date / Time acetaminophen Allergy Intermediate Hives Verified 12/22/23 19:02 ibuprofen Allergy Intermediate Hives Verified 12/22/23 19:02 tramadol Allergy Intermediate Hives Verified 12/22/23 19:02 Consultations 12/22/23 19:54 ED Decision to Admit Stat Ordered Studies 12/22/23 18:23 CT head/brain wo con Stat Hospital Course (1) History of drug abuse: (2) Seizure: (3) Epilepsy: Plan Pt is a 33 yo male with a hx of substance use cocaine and methamphetamine and marijuana also with hx of alcohol use disorder 1/2 pint liquor daily who presents to our facility from [facility] for withdrawal seizures. Withdrawal seizures - Patient sent in from [facility] for 6-7 consecutive seizures on 12/21 - withdrawing from methamphetamine, alcohol, marijuana, cocaine - Hx of seizures with prior withdrawals; patient currently denies seizures outside of withdrawal - last seizure was yesterday, has been stable since and wishing to go back to rehab today - [facility] willing to accept so will send pt back to [facility], - resume all other home meds as prescribed on discharge Epilepsy - Patient reports history of epilepsy - Is currently on Depakote 1000 mg p.o. BID, continue home dosing on discharge Alcohol withdrawal - Given timeline (2 days at [facility]), suspect last intake 3 days ago but pt notes last intake was 1/2 pint liquor on Sunday - was given IV thiamine and folic acid while here Total Time Total Time Spent Total Time Spent (In Minutes): <30 Discharge Plan Discharge Items Patient Disposition: Drug & Alcohol Rehab Reason For Visit: WITHDRAWAL SEIZURES Discharge Diagnosis: Seizure, substance use, withdrawal Condition on Discharge: Fair Activity: Resume your previous activity Non-emergency contact: Primary Care Provider Call non-emergency contact if: you have any medication questions and your symptoms worsen Follow-up/Referrals: [facility] [Primary Care Provider] - Diet: Regular Addtl Attending Provider Instructions: You were admitted to [facility] on 12/21-12/22 for seizures believed to be related to withdrawal of drug substances vs alcohol withdrawal. We treated you with medications to help dampen the symptoms of withdrawal and help your body to better adjust to the changes that come with withdrawal. You have not had any more seizures overnight or this morning and as you wish to go back to rehab, we believe it is safe at this point for you to continue your rehab journey. We recommend that once you are out of rehab that you follow-up with your family doctor (or establish with one if you do not have one), as they can help you through your recovery process and help you reach your goals in the long-term. Pending Studies at Discharge: No Stand-Alone Forms: My [facility] Skilled Items Patient informed of condition?: Yes DNR: No Discharge Level of Care: Other Communicable Disease: No Discharge Prognosis: Stable Lines: None Urinary Catheter: No Medications and DC Order Prescriptions: Continued multivitamin Tablet 1 tab PO DAILY clonidine HCl 0.1 mg Tablet 0.1 mg PO TID PRN (Reason: ANXIETY/RESTLESSNESS/HR >70/BP >100/70) trazodone 50 mg Tablet 50 mg PO HS prazosin 1 mg Capsule 1 mg PO HS ondansetron HCl 8 mg Tablet 8 mg PO Q8H PRN (Reason: NAUSEA/VOMITING) vitamin A and D Ointment 1 applic TOPICAL QID PRN (Reason: SKIN IRRITATION/PROTECTION) loperamide [Imodium A-D] 2 mg Tablet 4 mg PO BID PRN (Reason: Diarrhea) hydroxyzine pamoate 50 mg Capsule 50 mg PO TID PRN (Reason: Anxiety) bacitracin 500 unit/gram Ointment 1 applic TOPICAL QID PRN (Reason: SKIN INFECTION/ABRASIONS) famotidine 20 mg Tablet 20 mg PO DAILY PRN (Reason: UPSET STOMACH/GERD) magnesium hydroxide [Milk of Magnesia] 400 mg/5 mL Suspension 30 ml PO DAILY PRN (Reason: Constipation) dicyclomine 20 mg Tablet 20 mg PO TID PRN (Reason: GI CRAMPS/SPASMS) lithium carbonate 300 mg Capsule 300 mg PO BID hydrocortisone 1 % Cream 1 applic TOPICAL BID PRN (Reason: AFFECTED AREA) diphenhydramine HCl [Benadryl] 25 mg Capsule 25 - 50 mg PO Q6H PRN (Reason: ALLERGIES/RASH) divalproex [Depakote ER] 500 mg Tablet Extended Release 24 Hr 1,000 mg PO BID calcium carbonate [Tums] 200 mg calcium (500 mg) Tablet,Chewable 400 mg PO QID PRN (Reason: INDIGESTION/DYSPEPSIA) docusate sodium 100 mg Capsule 100 mg PO DAILY PRN (Reason: Constipation) gabapentin 300 mg Capsule 600 mg PO TID mirtazapine 15 mg Tablet 15 mg PO HS alum-mag hydroxide-simeth 200-200-20 mg/5 mL Suspension 20 ml PO BID PRN (Reason: INDIGESTION/GERD) polyethylene glycol 3350 [Miralax] 17 gram/dose Powder 17 g PO DAILY PRN (Reason: Constipation) albuterol sulfate 90 mcg/actuation Hfa Aerosol Inhaler 1 inh INHALATION Q4H PRN (Reason: Wheezing) loratadine [Claritin] 10 mg Tablet 10 mg PO DAILY PRN (Reason: SEASONAL ALLERGIES) naproxen 500 mg Tablet 500 mg PO BID PRN (Reason: Pain) simethicone 80 mg Tablet,Chewable 160 mg PO BID PRN (Reason: GAS/CRAMPS) bisacodyl 5 mg Tablet 15 mg PO DAILY PRN (Reason: Constipation) eucalyptus-menthol Lozenge 1 nessa MUCOUS MEMBRANE Q2H PRN (Reason: Sore Throat) guaifenesin [Mucus Relief] 400 mg Tablet 400 mg PO Q6H PRN (Reason: COUGH/MUCUS) duloxetine 30 mg Capsule,Delayed Release(Dr/Ec) 30 mg PO DAILY melatonin 5 mg Tablet 5 mg PO HS PRN (Reason: Sleep) camphor-menthol 0.2-3.5 % Gel 1 applic TOPICAL QID PRN (Reason: Muscle Pain) Rx Instructions: rub in gently and completely naloxone 4 mg/actuation [place],Non-Aerosol 4 mg INTRANASAL DIRECTED MDD 6 SPRAYS PRN (Reason: OPIATE OVERDOSE) Discharge Orders: Discharge Order (Routine); Ordered 12/23/23 Ordered By: Layne Melgar Admission Data Admit Date/Time: 12/22/23 20:32 Attending Provider: Thomas Mendes Admit Provider: Narciso Ellis Primary Care Provider: Ami Cantu Other Providers: Narciso Ellis Other Interventions: Discharge Summary Assessment (RN) Last Done: 12/23/23 11:50 Supervising Physician Co-Signing Physician Notes I personally examined the patient and verified all stewart points of history and exam, discussed case, and agree with decision making with Dr Melgar feeling better and very much wants to get back to rehab. No further seizures. No other signs or symptoms of withdrawal. vitals noted, in general he is sleeping but easily awoken no distress. HEENT normocephalic atraumatic mucous membranes moist. He is not tremulous or tachycardic. Not diaphoretic. Does not at all appear anxious. Mental status intact. No focal neurodeficits. Seizureseems to have resolved without recurrence now. No signs or symptoms of alcohol withdrawal. His desire to go back to rehab seems quite reasonable. Safe/stable for discharge. Otherwise as above. Resident Activity Tracking Resident Involvement: Resident Care Provided Care Provided: Adult Hospital Medicine
--- NOTE | 2023-12-23 15:49 | Billing Data ---
Date of Service December 23, 2023 Coding Level of Care Code 94881 IN/OBS DISCH 30 MIN/LESS
--- NOTE | 2023-12-24 23:00 | Electrocardiogram Report ---
Test Reason : Blood Pressure : / mmHG Vent. Rate : 078 BPM Atrial Rate : 078 BPM P-R Int : 142 ms QRS Dur : 080 ms QT Int : 368 ms P-R-T Axes : 066 064 057 degrees QTc Int : 419 ms Normal sinus rhythm Normal ECG No previous ECGs available Confirmed by Yury Mane ([id number]) on 12/24/2023 10:59:30 PM Referred By: Confirmed By:Yury Mane
== END 2023-12-23 11:53 | disposition alcohol treatment (31) | DRG 897 ==
LOC: ED 18:12 → SUATTDRO 20:32 → 2S 20:32

== ENCOUNTER 2023-12-26 20:28 | Observation (INO) ==
[2023-12-26] MEDS: ONDANSETRON INJ 2 MG/ML 2 ML VIAL ONE (20:46)
[2023-12-26] MEDS: ONDANSETRON INJ 2 MG/ML 2 ML VIAL IV STA (20:46)
[2023-12-26] MEDS: SODIUM CHLORIDE 0.9% 1,000 ML IV SCH (21:12)
[2023-12-26] MEDS: diphenhydrAMINE 50 MG/ML VIAL IV STA ×2 (21:24→21:56)
[2023-12-26] MEDS: METOCLOPRAMIDE HCL INJ 5 MG/ML 2 ML VIAL IV ONE (21:24)
[2023-12-26] MEDS: HALOPERIDOL LACTATE 5 MG/ML 1 ML VIAL IM STA (21:56)
[2023-12-26 21:59] LABS: Calcium 9.7 mg/dl (8.6-10.3); Magnesium 2.2 mg/dl (1.7-2.4); Potassium 4.2 mmol/L (3.5-5.1)
[2023-12-26 22:02] LABS: Basophils # (auto) 0.03 K/uL (0.00-0.20); Basophils % (auto) 0.3 %; Eosinophils # (auto) 0.38 K/uL (0.00-0.50); Eosinophils % (auto) 4.3 %; Hematocrit (blood only) 41.3 % (42.0-52.0); Hemoglobin 13.7 g/dl (14.0-18.0); Immature Granulocytes # (auto) 0.03 K/uL (0.01-0.20); Immature Granulocytes % (auto) 0.3 %; Lymphocytes # (auto) 2.99 K/uL (1.20-3.40); Lymphocytes % (auto) 34.2 %; Mean Corpuscular Hemoglobin 28.1 pg (25.0-34.0); Mean Corpuscular Hgb Conc 33.2 g/dL (32.0-36.0); Mean Corpuscular Volume 84.8 fL (80.0-100.0); Mean Platelet Volume 9.1 fL (9.4-12.4); Monocytes # (auto) 0.51 K/uL (0.11-0.59); Monocytes % (auto) 5.8 %; Neutrophils % (auto) 55.1 %; Platelet Count 360 K/uL (130-400); RDW Coefficient of Variation 13.4 % (11.5-14.5); RDW Standard Deviation 41.7 fL (36.4-46.3); Red Blood Count 4.87 M/uL (4.70-6.10); White Blood Count 8.74 K/ul (4.8-10.8)
[2023-12-26 22:04] LABS: BUN Creatinine Ratio 13.4 (10-20); Creatinine Clr Calc Pharmacy 98.5 ml/min; Est GFR (African American) 99.5 ml/min; Est GFR (Non-African American) 85.8 ml/min
--- NOTE | 2023-12-26 22:58 | Emergency Department Note ---
History of Present Illness General Chief complaint: Seizure Stated complaint: SEIZURES Time Seen by Provider: 12/26/23 20:43 History of Present Illness Provider complaint: Seizure-like activity 33-year-old male from [facility] with history of epilepsy polysubstance abuse on Depakote and lithium presents emergency department for seizure. Reportedly the patient had 4 seizures today at [facility]. According to nurse, EMS witnessed the last 1 which lasted 27 seconds and was tonic-clonic jerking. EMS reported to the nurse that the seizure self resolved and EMS reported nurse that the patient was not postictal afterwards. Patient denies hitting his head. He reports his hiccups from yesterday are better. No fevers. Home Medications Medication Instructions Recorded Confirmed Type albuterol sulfate 90 mcg/actuation 1 inh inhalation Q4H PRN Wheezing 12/22/23 12/26/23 History aerosol inhaler aluminum-mag hydroxide-simethicone 20 ml PO BID PRN INDIGESTION/GERD 12/22/23 12/26/23 History 200 mg-200 mg-20 mg/5 mL oral susp bacitracin 500 unit/gram topical 1 applic topical QID PRN SKIN 12/22/23 12/26/23 History ointment INFECTION/ABRASIONS bisacodyl 5 mg tablet 15 mg PO DAILY PRN Constipation 12/22/23 12/26/23 History calcium carbonate (Tums) 400 mg PO QID PRN 12/22/23 12/26/23 History INDIGESTION/DYSPEPSIA camphor-menthol 0.2 %-3.5 % 1 applic topical QID PRN Muscle 12/22/23 12/26/23 History topical gel Pain clonidine HCl 0.1 mg tablet 0.1 mg PO TID PRN 12/22/23 12/26/23 History ANXIETY/RESTLESSNESS/HR >70/BP >100/70 dicyclomine 20 mg tablet 20 mg PO TID PRN GI CRAMPS/SPASMS 12/22/23 12/26/23 History diphenhydramine HCl 25 mg capsule 25 - 50 mg PO Q6H PRN 12/22/23 12/26/23 History (Benadryl) ALLERGIES/RASH divalproex 500 mg tablet,extended 1,000 mg PO BID 12/22/23 12/26/23 History release 24 hr (Depakote ER) docusate sodium 100 mg capsule 100 mg PO DAILY PRN Constipation 12/22/23 12/26/23 History duloxetine 30 mg capsule,delayed 30 mg PO DAILY 12/22/23 12/26/23 History release eucalyptus-menthol oral mucosal 1 nessa mucous membrane Q2H PRN Sore 12/22/23 12/26/23 History lozenge Throat famotidine 20 mg tablet 20 mg PO DAILY 12/22/23 12/26/23 History gabapentin 300 mg capsule 90 mg PO TID 12/22/23 12/26/23 History guaifenesin 400 mg tablet (Mucus 400 mg PO Q6H PRN COUGH/MUCUS 12/22/23 12/26/23 History Relief) hydrocortisone 1 % topical cream 1 applic topical BID PRN AFFECTED 12/22/23 12/26/23 History AREA hydroxyzine pamoate 50 mg capsule 50 mg PO TID PRN Anxiety 12/22/23 12/26/23 History loperamide 2 mg tablet (Imodium 4 mg PO BID PRN Diarrhea 12/22/23 12/26/23 History A-D) loratadine 10 mg tablet (Claritin) 10 mg PO DAILY PRN SEASONAL 12/22/23 12/26/23 History ALLERGIES magnesium hydroxide 400 mg/5 mL 30 ml PO DAILY PRN Constipation 12/22/23 12/26/23 History oral suspension (Milk of Magnesia) melatonin 5 mg tablet 5 mg PO HS PRN Sleep 12/22/23 12/26/23 History multivitamin 1 tab PO DAILY 12/22/23 12/26/23 History naloxone 4 mg/actuation nasal spray 4 mg intranasal DIRECTED PRN 12/22/23 12/26/23 History OPIATE OVERDOSE naproxen 500 mg tablet 500 mg PO BID PRN Pain 12/22/23 12/26/23 History ondansetron HCl 8 mg tablet 8 mg PO Q8H PRN NAUSEA/VOMITING 12/22/23 12/26/23 History polyethylene glycol 3350 17 17 g PO DAILY PRN Constipation 12/22/23 12/26/23 History gram/dose oral powder (Miralax) prazosin 1 mg capsule 2 mg PO HS 12/22/23 12/26/23 History simethicone 80 mg chewable tablet 160 mg PO BID PRN GAS/CRAMPS 12/22/23 12/26/23 History trazodone 50 mg tablet 50 mg PO HS 12/22/23 12/26/23 History vitamin A and D 1 applic topical QID PRN SKIN 12/22/23 12/26/23 History IRRITATION/PROTECTION doxycycline hyclate 100 mg capsule 100 mg PO BID 7 days #14 caps 12/25/23 12/26/23 Rx metoclopramide HCl 5 mg tablet 5 mg PO BID PRN hiccups #14 tabs 12/25/23 12/26/23 Rx (Reglan) amoxicillin 875 mg-potassium 1 tab PO BIDM 12/26/23 12/26/23 History clavulanate 125 mg tablet pantoprazole 20 mg tablet,delayed 20 mg PO DAILY 12/26/23 12/26/23 History release promethazine 25 mg/mL injection 12.5 mg IM ONCE 12/26/23 12/26/23 History solution Allergies Allergy/AdvReac Type Severity Reaction Status Date / Time acetaminophen Allergy Intermediate Hives Verified 12/26/23 22:04 ibuprofen Allergy Intermediate Hives Verified 12/26/23 22:04 tramadol Allergy Intermediate Hives Verified 12/26/23 22:04 Past Med/Surg History Problem List (Updated 12/27/23 @ 00:36 by Jian Lowery MD) Nausea and vomiting (Acute) Seizure-like activity (Acute) Seizure (Acute) Alcohol withdrawal Epilepsy (Acute) Seizures Medical History (Updated 12/27/23 @ 00:36 by Jian Lowery MD) Pneumonia Hiccups History of drug abuse Vomiting Alcohol withdrawal Withdrawal seizures Social History Smoking Status: Current every day smoker Tobacco Type: Cigarettes Second Hand Exposure: Yes; Hx Alcohol Use: Yes Alcohol type: beer and wine Hx Substance Use: Yes Last Used Substance: Days (ago) Preferred Language: Citizen Of [place] Communication Ability: Effective Pit Boss Required: No Beliefs That Will Affect Care: None Current Living Situation: Other Current Living Situation Comment: [facility] Feels Safe at Home: Yes Assistive Devices: None Physical Exam Vital Signs Vital Signs - 24 hr 12/26/23 20:40 12/26/23 20:40 12/26/23 20:40 Temperature 37.3 C 37.3 C Temperature Source Oral Oral Pulse Rate 78 Pulse Rate [Apical] 84 Pulse Rhythm Pulse Rhythm [Apical] Regular Pulse Strength [Apical] Respiratory Rate 15 18 Respiratory Effort / Characteristics Non-Labored Spontaneous Non-Labored Spontaneous Respiratory Depth Normal Normal Respiratory Pattern Regular Regular Blood Pressure 117/78 Blood Pressure [Right Arm] 117/78 Blood Pressure Mean 91 Blood Pressure Mean [Right Arm] 91 Pulse Oximetry 99 99 100 Oxygen Delivery Method Room Air Room Air Room Air Sepsis Recent Fever Within 48 Hours No Sepsis New/Unexplained Change in Mental Status No Sepsis Action Taken by Nursing No Action Required 12/26/23 20:41 12/26/23 20:59 12/26/23 21:30 Temperature Temperature Source Pulse Rate 107 H 85 Pulse Rate [Apical] 92 H Pulse Rhythm Regular Pulse Rhythm [Apical] Pulse Strength [Apical] Respiratory Rate 18 20 Respiratory Effort / Characteristics Respiratory Depth Normal Respiratory Pattern Blood Pressure Blood Pressure [Right Arm] 146/113 H Blood Pressure Mean Blood Pressure Mean [Right Arm] 124 Pulse Oximetry 100 100 Oxygen Delivery Method Room Air Room Air Sepsis Recent Fever Within 48 Hours Sepsis New/Unexplained Change in Mental Status Sepsis Action Taken by Nursing 12/26/23 23:03 12/26/23 23:39 12/27/23 00:03 Temperature Temperature Source Pulse Rate Pulse Rate [Apical] 73 69 66 Pulse Rhythm Pulse Rhythm [Apical] Regular Regular Regular Pulse Strength [Apical] Normal Normal Normal Respiratory Rate 15 14 14 Respiratory Effort / Characteristics Non-Labored Spontaneous Non-Labored Spontaneous Non-Labored Spontaneous Respiratory Depth Normal Normal Normal Respiratory Pattern Regular Regular Regular Blood Pressure Blood Pressure [Right Arm] 144/80 H 148/84 H 167/105 H Blood Pressure Mean Blood Pressure Mean [Right Arm] 101 105 125 Pulse Oximetry 99 100 100 Oxygen Delivery Method Room Air Room Air Room Air Sepsis Recent Fever Within 48 Hours Sepsis New/Unexplained Change in Mental Status Sepsis Action Taken by Nursing Physical Exam HENT: Exam performed. -Head: Normocephalic and atraumatic. -Right Ear: External ear normal. No mastoid erythema -Left Ear: External ear normal. No mastoid erythema -Mouth/Throat: The oropharynx is clear and moist. No trismus in the jaw. No dental abscesses or uvula swelling. No oropharyngeal exudate or tonsillar abscesses. EYES: Conjunctivae and EOM are normal. Pupils are equal, round, and reactive to light. Right eye exhibits no discharge. Left eye exhibits no discharge. No scleral icterus. Funduscopic exam showed no AV nicking or papilledema bilaterally. NECK: Normal range of motion. Neck supple. No JVD present. No spinous process tenderness present. No rigidity. No tracheal deviation and normal range of motion present. No Brudzinski's sign and no Kernig's sign noted. CV: Normal rate, regular rhythm, normal heart sounds and intact distal pulses. There is no peripheral edema. Palpable radial pulses bue. PULM/CHEST: Effort normal and breath sounds normal. No respiratory distress. No stridor. She has no wheezes. She has no rales. MUSC/SKEL: Normal range of motion. There is no peripheral edema, tenderness or deformity. NEURO: She is alert and oriented to person, place, and time. She has normal strength. No cranial nerve deficit or sensory deficit. Coordination and gait normal. GCS eye subscore is 4. GCS verbal subscore is 5. GCS motor subscore is 6. Cerebellar tests wnl. No clonus. SKIN: Skin is warm and dry. She is not diaphoretic. PSYCH: She has a normal mood and affect. Behavior is normal. Judgment and thought content normal. Course Course 2042: The patient was evaluated in room B6. A complete history and physical exam was performed Cardiac monitoring: An order was placed for continuous cardiac monitoring. The monitor shows a rate of 70 with sinus rhythm interpreted by me 2114: Patient having increasing vomiting. Reglan and Benadryl ordered for patient 2154: Patient still vomiting. Vomitus does appear slightly bloody. Haldol and Benadryl ordered for the patient to help with the hyperemesis. Protonix bolus and drip will be ordered. Will reorder CT of the head and C-spine given his recurrent seizures and continued vomiting. 2299: CT of the head viewed by me shows no ICH. Discussed case with Dr. Ricardo on-call neurology. We agreed that we will most likely have to admit the patient given this is the third visit to the hospital in the last 4 days. He recommends loading the patient with Keppra. 0034: Vital signs stable. Labs and imaging unremarkable. Patient mated to Dr. Jesus Silva hospitalist. She will be down to evaluate the patient as she stated. Administered Medications Sodium Chloride (Nss) 1,000 mls @ 125 mls/hr IV .Q8H LOUISA Stop: 01/25/24 20:59 Last Admin: 12/26/23 21:12 Dose: 125 mls/hr Documented By: TATA Pantoprazole Sodium 40 mg/ (Dextrose) 100 mls @ 20 mls/hr IV Q5H LOUISA Stop: 01/25/24 23:44 Last Admin: 12/26/23 23:54 Dose: 8 mg/hr, 20 mls/hr Documented By: TIA Discontinued Medications Diphenhydramine HCl (Diphenhydramine 50 Mg/Ml Vial) 25 mg IV NOW STA Stop: 12/26/23 21:19 Last Admin: 12/26/23 21:24 Dose: 25 mg Documented By: TATA Diphenhydramine HCl (Diphenhydramine 50 Mg/Ml Vial) 25 mg IV NOW STA Stop: 12/26/23 21:52 Last Admin: 12/26/23 21:56 Dose: 25 mg Documented By: TATA Haloperidol Lactate (Haloperidol Lactate 5 Mg/Ml 1 Ml Vial) 5 mg IM NOW STA Stop: 12/26/23 21:52 Last Admin: 12/26/23 21:56 Dose: 5 mg Documented By: TATA Pantoprazole Sodium 80 mg/ (Dextrose) 120 mls @ 480 mls/hr IV NOW ONE Stop: 12/26/23 23:33 Last Infusion: 12/26/23 23:58 Dose: Infused Documented By: Admin: 12/26/23 23:34 Dose: 480 mls/hr Documented By: TIA Levetiracetam (Levetiracetam 500 Mg/5 Ml Vial) 1,650 mg 20 mg/kg (1650 mg) IV NOW STA Stop: 12/26/23 23:02 Last Admin: 12/26/23 23:09 Dose: 1,650 mg Documented By: TIA Lorazepam (Lorazepam 1 Mg/1 Ml Syr Ed Inj Use) 1 mg IV ONE STA Stop: 12/26/23 23:58 Last Admin: 12/27/23 00:00 Dose: 1 mg Documented By: TIA Metoclopramide HCl (Metoclopramide Hcl Inj 5 Mg/Ml 2 Ml Vial) 5 mg IV ONE ONE Stop: 12/26/23 21:19 Last Admin: 12/26/23 21:24 Dose: 5 mg Documented By: TATA Ondansetron HCl (Ondansetron Inj 2 Mg/Ml 2 Ml Vial) Confirm Administered Dose 4 mg .ROUTE .STK-MED ONE Stop: 12/26/23 20:44 Last Admin: 12/26/23 20:46 Dose: Not Given Documented By: TATA Ondansetron HCl (Ondansetron Inj 2 Mg/Ml 2 Ml Vial) 4 mg IV NOW STA Stop: 12/26/23 20:46 Last Admin: 12/26/23 20:46 Dose: 4 mg Documented By: TATA Medical Decision Making Laboratory Data Attestation: I reviewed the patient's lab results. 12/26/23 20:34 12/26/23 20:34 Lab Results 12/26/23 12/26/23 12/26/23 Range/Units 20:34 21:11 21:15 WBC 8.74 (4.8-10.8) K/ul RBC 4.87 (4.70-6.10) M/uL Hgb 13.7 L (14.0-18.0) g/dl Hct 41.3 L (42.0-52.0) % MCV 84.8 (80.0-100.0) fL MCH 28.1 (25.0-34.0) pg MCHC 33.2 (32.0-36.0) g/dL RDW Std Deviation 41.7 (36.4-46.3) fL RDW Coeff of Hiro 13.4 (11.5-14.5) % Plt Count 360 (130-400) K/uL MPV 9.1 L (9.4-12.4) fL Immature Gran % (Auto) 0.3 % Neut % (Auto) 55.1 % Lymph % (Auto) 34.2 % [place] % (Auto) 5.8 % Eos % (Auto) 4.3 % Baso % (Auto) 0.3 % Neut # (Auto) 4.80 (1.40-6.50) K/uL Lymph # (Auto) 2.99 (1.20-3.40) K/uL [place] # (Auto) 0.51 (0.11-0.59) K/uL Eos # (Auto) 0.38 (0.00-0.50) K/uL Baso # (Auto) 0.03 (0.00-0.20) K/uL Immature Gran # (Auto) 0.03 (0.01-0.20) K/uL Sodium 138 (136-145) mmol/L Potassium 4.2 (3.5-5.1) mmol/L Chloride 102 (98-107) mmol/L Carbon Dioxide 27 (21-32) mmol/L Anion Gap 9 (3-11) BUN 15 (6-23) mg/dl Creatinine 1.12 (0.6-1.4) mg/dl Est Cr Clr Drug Dosing 98.5 ml/min Est GFR ( Amer) 99.5 ml/min Est GFR (Non-Af Amer) 85.8 ml/min BUN/Creatinine Ratio 13.4 (10-20) Glucose 104 H (70-99(Fasting)) mg/dl POC Glucose 107 H (70-99) mg/dl Lactate 1.1 (0.4-2.0) mmol/L Calcium 9.7 (8.6-10.3) mg/dl Magnesium 2.2 (1.7-2.4) mg/dl Prolactin 13.34 ng/ml Imaging Data Attestation: I personally reviewed and interpreted this imaging study as follows: My Impression: Acute abdominal series: Chest x-ray negative. Airway clear. No pneumothorax. No consolidation. No cardiomegaly or cephalization.. No free air under the diaphragm. No fractures of the skeletal structures. No air-fluid levels. Nonspecific bowel gas pattern. CT head: No ICH Radiologist's Impression: Cervical Spine CT 12/26/23 22:06 Exam(s): CT C SPINE EXAM: CT Cervical Spine Without Intravenous Contrast CLINICAL HISTORY: Reason for exam: found down seziure. TECHNIQUE: Axial computed tomography images of the cervical spine without intravenous contrast. CTDI is cervical old 26.86 mGy and DLP is 567.73 mGy-cm. Automated exposure control was utilized for the study. A dose lowering technique was utilized adhering to the principles of ALARA. COMPARISON: No relevant prior studies available. FINDINGS: The vertebral body heights are maintained. The craniocervical junction is intact. The atlanto-dens interval is maintained. The dens is intact. There is no spondylolisthesis. Multilevel cervical spondylosis and degenerative disc disease. Straightening of the cervical lordosis. The unenhanced neck soft tissues are grossly unremarkable. The visualized lung apices are grossly clear. IMPRESSION: No acute fracture or subluxation of the cervical spine. Electronically signed by: Benny Haley MD 12/27/23 00:[address] 12/26/23 22:06 Exam(s): CT HEAD Without Contrast EXAM: CT Head Without Intravenous Contrast CLINICAL HISTORY: Reason for exam: found down seziure. TECHNIQUE: Axial computed tomography images of the head/brain without intravenous contrast. CTDI is 36.79 mGy and DLP is 624.41 mGy-cm. Automated exposure control was utilized for the study. A dose lowering technique was utilized adhering to the principles of ALARA. COMPARISON: No relevant prior studies available. FINDINGS: No acute intracranial hemorrhage. No midline shift or mass effect. The territorial dotson-white matter differentiation is maintained throughout. The ventricles and sulci are commensurate with age. The visualized orbits appear grossly unremarkable. The calvarium is intact. Right-sided paranasal sinus mucosal thickening, correlate for sinusitis. IMPRESSION: No acute intracranial hemorrhage, midline shift, or mass effect. Right-sided paranasal sinus mucosal thickening, correlate for sinusitis. Electronically signed by: Benny Haley MD 12/27/23 00:15 AM ECG Data Attestation: I personally reviewed and interpreted this ECG as follows: Rate (beats per minute): 91 Rhythm: + normal sinus ECG Intervals/blocks: + Normal QRS, + Normal [place] and + Normal QT-c ECG ST segments: + Normal ST segments MDM Narrative 2042: The patient was evaluated in room B6. A complete history and physical exam was performed Cardiac monitoring: An order was placed for continuous cardiac monitoring. The monitor shows a rate of 70 with sinus rhythm interpreted by me 2114: Patient having increasing vomiting. Reglan and Benadryl ordered for patient 2154: Patient still vomiting. Vomitus does appear slightly bloody. Haldol and Benadryl ordered for the patient to help with the hyperemesis. Protonix bolus and drip will be ordered. Will reorder CT of the head and C-spine given his recurrent seizures and continued vomiting. 2299: CT of the head viewed by me shows no ICH. Discussed case with Dr. Ricardo on-call neurology. We agreed that we will most likely have to admit the patient given this is the third visit to the hospital in the last 4 days. He recommends loading the patient with Keppra. 0034: Vital signs stable. Labs and imaging unremarkable. Patient mated to Dr. [facility] hospitalist. She will be down to evaluate the patient as she stated. Impression & Plan Seizure-like activity, Nausea and vomiting Discharge Plan Visit Data Chief Complaint: Seizure Stated Complaint: SEIZURES ED Provider: Jian Lowery Discharge Problem: Seizure-like activity, Nausea and vomiting Patient Disposition: Being Evaluated by Hospitalist Forms Stand Alone Forms: [facility], Important Visit Information Prescriptions Prescriptions: No Action multivitamin Tablet 1 tab PO DAILY clonidine HCl 0.1 mg Tablet 0.1 mg PO TID PRN (Reason: ANXIETY/RESTLESSNESS/HR >70/BP >100/70) trazodone 50 mg Tablet 50 mg PO HS prazosin 1 mg Capsule 2 mg PO HS ondansetron HCl 8 mg Tablet 8 mg PO Q8H PRN (Reason: NAUSEA/VOMITING) vitamin A and D Ointment 1 applic TOPICAL QID PRN (Reason: SKIN IRRITATION/PROTECTION) loperamide [Imodium A-D] 2 mg Tablet 4 mg PO BID PRN (Reason: Diarrhea) hydroxyzine pamoate 50 mg Capsule 50 mg PO TID PRN (Reason: Anxiety) bacitracin 500 unit/gram Ointment 1 applic TOPICAL QID PRN (Reason: SKIN INFECTION/ABRASIONS) famotidine 20 mg Tablet 20 mg PO DAILY magnesium hydroxide [Milk of Magnesia] 400 mg/5 mL Suspension 30 ml PO DAILY PRN (Reason: Constipation) dicyclomine 20 mg Tablet 20 mg PO TID PRN (Reason: GI CRAMPS/SPASMS) hydrocortisone 1 % Cream 1 applic TOPICAL BID PRN (Reason: AFFECTED AREA) diphenhydramine HCl [Benadryl] 25 mg Capsule 25 - 50 mg PO Q6H PRN (Reason: ALLERGIES/RASH) divalproex [Depakote ER] 500 mg Tablet Extended Release 24 Hr 1,000 mg PO BID calcium carbonate [Tums] 200 mg calcium (500 mg) Tablet,Chewable 400 mg PO QID PRN (Reason: INDIGESTION/DYSPEPSIA) docusate sodium 100 mg Capsule 100 mg PO DAILY PRN (Reason: Constipation) gabapentin 300 mg Capsule 90 mg PO TID alum-mag hydroxide-simeth 200-200-20 mg/5 mL Suspension 20 ml PO BID PRN (Reason: INDIGESTION/GERD) polyethylene glycol 3350 [Miralax] 17 gram/dose Powder 17 g PO DAILY PRN (Reason: Constipation) albuterol sulfate 90 mcg/actuation Hfa Aerosol Inhaler 1 inh INHALATION Q4H PRN (Reason: Wheezing) loratadine [Claritin] 10 mg Tablet 10 mg PO DAILY PRN (Reason: SEASONAL ALLERGIES) naproxen 500 mg Tablet 500 mg PO BID PRN (Reason: Pain) simethicone 80 mg Tablet,Chewable 160 mg PO BID PRN (Reason: GAS/CRAMPS) bisacodyl 5 mg Tablet 15 mg PO DAILY PRN (Reason: Constipation) eucalyptus-menthol Lozenge 1 nessa MUCOUS MEMBRANE Q2H PRN (Reason: Sore Throat) guaifenesin [Mucus Relief] 400 mg Tablet 400 mg PO Q6H PRN (Reason: COUGH/MUCUS) duloxetine 30 mg Capsule,Delayed Release(Dr/Ec) 30 mg PO DAILY melatonin 5 mg Tablet 5 mg PO HS PRN (Reason: Sleep) camphor-menthol 0.2-3.5 % Gel 1 applic TOPICAL QID PRN (Reason: Muscle Pain) Rx Instructions: rub in gently and completely naloxone 4 mg/actuation Llewellyn,Non-Aerosol 4 mg INTRANASAL DIRECTED MDD 6 SPRAYS PRN (Reason: OPIATE OVERDOSE) doxycycline hyclate 100 mg capsule 100 mg PO BID 7 Days Qty: 14 0RF Rx Instructions: STARTED 12/25/23 FOR 7 DAYS metoclopramide HCl [Reglan] 5 mg tablet 5 mg PO BID PRN (Reason: hiccups) Qty: 14 0RF pantoprazole 20 mg Tablet,Delayed Release (Dr/Ec) 20 mg PO DAILY promethazine 25 mg/mL Solution 12.5 mg IM ONCE amoxicillin-pot clavulanate 875-125 mg tablet 1 tab PO BIDM Rx Instructions: STARTED 12/25/23 FOR 7 DAYS Referrals Referrals: [facility] [Primary Care Provider] - Discharge Problem: Nausea and vomiting Qualifiers: Vomiting type: unspecified Qualified Code(s): R11.2 - Nausea with vomiting, unspecified
[2023-12-26] MEDS: levETIRAcetam 500 MG/5 ML VIAL IV STA (23:09)
[2023-12-26] MEDS: PANTOprazole 80 MG in DEXTROSE 5% 100 ML IV ONE (23:34)
[2023-12-26] MEDS: PANTOprazole 40 MG in DEXTROSE 5% MINI-B 100 ML IV SCH (23:54)
[2023-12-27] MEDS: LORazepam 1 MG/1 ML SYR ED Inj Use IV STA
--- NOTE | 2023-12-27 00:15 | CT Scan Report ---
Exam(s): CT HEAD Without Contrast EXAM: CT Head Without Intravenous Contrast CLINICAL HISTORY: Reason for exam: found down seziure. TECHNIQUE: Axial computed tomography images of the head/brain without intravenous contrast. CTDI is 36.79 mGy and DLP is 624.41 mGy-cm. Automated exposure control was utilized for the study. A dose lowering technique was utilized adhering to the principles of ALARA. COMPARISON: No relevant prior studies available. FINDINGS: No acute intracranial hemorrhage. No midline shift or mass effect. The territorial dotson-white matter differentiation is maintained throughout. The ventricles and sulci are commensurate with age. The visualized orbits appear grossly unremarkable. The calvarium is intact. Right-sided paranasal sinus mucosal thickening, correlate for sinusitis. IMPRESSION: No acute intracranial hemorrhage, midline shift, or mass effect. Right-sided paranasal sinus mucosal thickening, correlate for sinusitis. Electronically signed by: Benny Haley MD 12/27/23 00:15 AM
--- NOTE | 2023-12-27 00:16 | CT Scan Report ---
Exam(s): CT C SPINE EXAM: CT Cervical Spine Without Intravenous Contrast CLINICAL HISTORY: Reason for exam: found down seziure. TECHNIQUE: Axial computed tomography images of the cervical spine without intravenous contrast. CTDI is cervical old 26.86 mGy and DLP is 567.73 mGy-cm. Automated exposure control was utilized for the study. A dose lowering technique was utilized adhering to the principles of ALARA. COMPARISON: No relevant prior studies available. FINDINGS: The vertebral body heights are maintained. The craniocervical junction is intact. The atlanto-dens interval is maintained. The dens is intact. There is no spondylolisthesis. Multilevel cervical spondylosis and degenerative disc disease. Straightening of the cervical lordosis. The unenhanced neck soft tissues are grossly unremarkable. The visualized lung apices are grossly clear. IMPRESSION: No acute fracture or subluxation of the cervical spine. Electronically signed by: Benny Haley MD 12/27/23 00:16 AM
--- NOTE | 2023-12-27 00:49 | History & Physical Report ---
"Date of Service December 27, 2023 Assessment & Plan (1) Nausea and vomiting: (2) Seizure-like activity: (3) Seizure: (4) Alcohol withdrawal: (5) Epilepsy: (6) Seizures: Plan Recurrent Seizures | Epilepsy -Received IV Keppra in ED, as well as Ativan, Haldol for agitation and hiccups -Continue home Depakote, per med rec patient is no longer taking [place]. -Neurology consulted, appreciate recommendations -EEG ordered -Seizure precautions, will keep NPO at present -History of recent withdrawal from alcohol, methamphetamine, cocaine -Urine drug screen ordered -AWSS active protocol with IV Ativan Pneumonia | Possible Aspiration -Evidence of possible R lower lobe infiltrate on imaging from 12/24, was discharged on Augmentin and doxy -Will order Zosyn while admitted to additional coverage as due to frequent vomiting he is at risk for aspiration -Currently on room air with appropriate oxygen saturations, afebrile -Monitor daily CBC with differential, blood culture collected in ED Hematemesis | Hiccups -Noted to have wretching and vomiting in ED as well as intractable hiccups -Reglan ordered PRN for hiccups and nausea -Continue Protonix drip Admit to: PCU Diet: NPO VTE Prophylaxis: SCDs Code Status: Full Code (Note: code status is per last admission, was unable to discuss with patient at bedside due to his somnolence) History of Present Illness Primary Care Provider: [facility] Charly is a 33 year-old male with a past medical history of withdrawal seizure, methamphetamine use, alcohol use disorder, and cocaine use. He has been seen at [facility] on multiple occasions for active seizures this past week. He admitted to [facility] on 12/21 and discharged on 12/22, he also was seen on 12/24 in the ED and subsequently discharged back to [facility] on the same day. History was obtained from chart review as patient was very drowsy during the exam after receiving Ativan/Benadryl/Haldol. Per ED note, patient had 4 seizures today at [facility] and an additional seizure with tonic-clonic jerks witnessed by EMS which self resolved and had no post-ictal state. Patient has reportedly also had ongoing hiccups as well as vomiting with some blood. ED doctor spoke with on-call neurologist who recommended a Keppra load and admission due to the frequency of his seizures and multiple presentations to ED for same symptoms. On chart review, imaging on 12/24 showed possible right lower lobe infiltrate as well as sinusitis so patient was discharged on a course of Augmentin and doxycycline. ED Course: -IV Benadryl x2, Haldol, Ativan -IV Keppra -CT head, CT c-spine, KUB Allergies Allergy/AdvReac Type Severity Reaction Status Date / Time acetaminophen Allergy Intermediate Hives Verified 12/26/23 22:04 ibuprofen Allergy Intermediate Hives Verified 12/26/23 22:04 tramadol Allergy Intermediate Hives Verified 12/26/23 22:04 Home Medications Medication Instructions Recorded Confirmed Type albuterol sulfate 90 mcg/actuation 1 inh inhalation Q4H PRN Wheezing 12/22/23 12/26/23 History aerosol inhaler aluminum-mag hydroxide-simethicone 20 ml PO BID PRN INDIGESTION/GERD 12/22/23 12/26/23 History 200 mg-200 mg-20 mg/5 mL oral susp bacitracin 500 unit/gram topical 1 applic topical QID PRN SKIN 12/22/23 12/26/23 History ointment INFECTION/ABRASIONS bisacodyl 5 mg tablet 15 mg PO DAILY PRN Constipation 12/22/23 12/26/23 History calcium carbonate (Tums) 400 mg PO QID PRN 12/22/23 12/26/23 History INDIGESTION/DYSPEPSIA camphor-menthol 0.2 %-3.5 % 1 applic topical QID PRN Muscle 12/22/23 12/26/23 History topical gel Pain clonidine HCl 0.1 mg tablet 0.1 mg PO TID PRN 12/22/23 12/26/23 History ANXIETY/RESTLESSNESS/HR >70/BP >100/70 dicyclomine 20 mg tablet 20 mg PO TID PRN GI CRAMPS/SPASMS 12/22/23 12/26/23 History diphenhydramine HCl 25 mg capsule 25 - 50 mg PO Q6H PRN 12/22/23 12/26/23 History (Benadryl) ALLERGIES/RASH divalproex 500 mg tablet,extended 1,000 mg PO BID 12/22/23 12/26/23 History release 24 hr (Depakote ER) docusate sodium 100 mg capsule 100 mg PO DAILY PRN Constipation 12/22/23 12/26/23 History duloxetine 30 mg capsule,delayed 30 mg PO DAILY 12/22/23 12/26/23 History release eucalyptus-menthol oral mucosal 1 nessa mucous membrane Q2H PRN Sore 12/22/23 12/26/23 History lozenge Throat famotidine 20 mg tablet 20 mg PO DAILY 12/22/23 12/26/23 History gabapentin 300 mg capsule 90 mg PO TID 12/22/23 12/26/23 History guaifenesin 400 mg tablet (Mucus 400 mg PO Q6H PRN COUGH/MUCUS 12/22/23 12/26/23 History Relief) hydrocortisone 1 % topical cream 1 applic topical BID PRN AFFECTED 12/22/23 12/26/23 History AREA hydroxyzine pamoate 50 mg capsule 50 mg PO TID PRN Anxiety 12/22/23 12/26/23 History loperamide 2 mg tablet (Imodium 4 mg PO BID PRN Diarrhea 12/22/23 12/26/23 History A-D) loratadine 10 mg tablet (Claritin) 10 mg PO DAILY PRN SEASONAL 12/22/23 12/26/23 History ALLERGIES magnesium hydroxide 400 mg/5 mL 30 ml PO DAILY PRN Constipation 12/22/23 12/26/23 History oral suspension (Milk of Magnesia) melatonin 5 mg tablet 5 mg PO HS PRN Sleep 12/22/23 12/26/23 History multivitamin 1 tab PO DAILY 12/22/23 12/26/23 History naloxone 4 mg/actuation nasal spray 4 mg intranasal DIRECTED PRN 12/22/23 12/26/23 History OPIATE OVERDOSE naproxen 500 mg tablet 500 mg PO BID PRN Pain 12/22/23 12/26/23 History ondansetron HCl 8 mg tablet 8 mg PO Q8H PRN NAUSEA/VOMITING 12/22/23 12/26/23 History polyethylene glycol 3350 17 17 g PO DAILY PRN Constipation 12/22/23 12/26/23 History gram/dose oral powder (Miralax) prazosin 1 mg capsule 2 mg PO HS 12/22/23 12/26/23 History simethicone 80 mg chewable tablet 160 mg PO BID PRN GAS/CRAMPS 12/22/23 12/26/23 History trazodone 50 mg tablet 50 mg PO HS 12/22/23 12/26/23 History vitamin A and D 1 applic topical QID PRN SKIN 12/22/23 12/26/23 History IRRITATION/PROTECTION doxycycline hyclate 100 mg capsule 100 mg PO BID 7 days #14 caps 12/25/23 12/26/23 Rx metoclopramide HCl 5 mg tablet 5 mg PO BID PRN hiccups #14 tabs 12/25/23 12/26/23 Rx (Reglan) amoxicillin 875 mg-potassium 1 tab PO BIDM 12/26/23 12/26/23 History clavulanate 125 mg tablet pantoprazole 20 mg tablet,delayed 20 mg PO DAILY 12/26/23 12/26/23 History release promethazine 25 mg/mL injection 12.5 mg IM ONCE 12/26/23 12/26/23 History solution Past Med/Surg History Problem List (Updated 12/27/23 @ 09:34 by Chidi Ricardo MD) Stimulant abuse Alcohol use disorder Nausea and vomiting (Acute) Seizure-like activity (Acute) Seizure (Acute) Alcohol withdrawal Epilepsy (Acute) Seizures Medical History (Updated 12/27/23 @ 09:34 by Chidi Ricardo MD) Pneumonia Hiccups History of drug abuse Vomiting Alcohol withdrawal Withdrawal seizures Social History Smoking Status: Current every day smoker Tobacco Type: Cigarettes Second Hand Exposure: Yes; Do You Dip or Chew Tobacco: No; Tobacco Cessation Education Requested by Patient: No Hx Alcohol Use: Yes Alcohol type: hard liquor Hx Substance Use: Yes Last Used Substance: Unknown Preferred Language: [place] Leonean Communication Ability: Effective Enterprise Cloud Architect Required: No Beliefs That Will Affect Care: None Current Living Situation: Rehab and Other Current [facility] Sit[facility] Feels Safe at Home: Yes Safety Concerns: Feels Safe At This Time Assistive Devices: None Review of Systems Review of Systems: As per above Physical Exam Constitutional: average body habitus and + lethargic; no acute distress Eyes: + anicteric sclerae and PERRL; no conjun ctival abnormality ENMT: Ears: no external ear abnormality Nose: no external nose abnormality Moist mucous membranes Respiratory: normal respiratory effort; no respiratory distress and does not use accessory muscles Anterior lung [place] clear, exam limited due to patient position Cardiovascular: Rate/Rhythm: regular rate and regular rhythm Extremities: no edema Gastrointestinal (Abdomen): Inspection/Auscultation: abdomen not distended Percussion/Palpation: abdomen soft; no guarding Skin: no rashes, warm and dry Psychiatric: Unable to assess due to somnolence as result of medications Results & Data Results & Data Vital Signs (Past 12 Hours) Vital Signs Temp Pulse Pulse Resp BP BP Pulse Ox 12/27/23 00:36 72 14 142/83 H 98 12/27/23 00:34 74 12/27/23 00:03 66 14 167/105 H 100 12/26/23 23:39 69 14 148/84 H 100 12/26/23 23:03 73 15 144/80 H 99 12/26/23 21:30 92 H 20 146/113 H 100 12/26/23 20:59 85 18 100 12/26/23 20:41 107 H 12/26/23 20:40 37.3 C 84 18 117/78 100 12/26/23 20:40 99 12/26/23 20:40 37.3 C 78 15 117/78 99 O2 Del Method 12/27/23 00:36 Room Air 12/27/23 00:34 12/27/23 00:03 Room Air 12/26/23 23:39 Room Air 12/26/23 23:03 Room Air 12/26/23 21:30 Room Air 12/26/23 20:59 Room Air 12/26/23 20:41 12/26/23 20:40 Room Air 12/26/23 20:40 Room Air 12/26/23 20:40 Room Air Diagnostic Findings Cervical Spine CT 12/26/23 22:06 Exam(s): CT C SPINE EXAM: CT Cervical Spine Without Intravenous Contrast CLINICAL HISTORY: Reason for exam: found down seziure. TECHNIQUE: Axial computed tomography images of the cervical spine without intravenous contrast. CTDI is cervical old 26.86 mGy and DLP is 567.73 mGy-cm. Automated exposure control was utilized for the study. A dose lowering technique was utilized adhering to the principles of ALARA. COMPARISON: No relevant prior studies available. FINDINGS: The vertebral body heights are maintained. The craniocervical junction is intact. The atlanto-dens interval is maintained. The dens is intact. There is no spondylolisthesis. Multilevel cervical spondylosis and degenerative disc disease. Straightening of the cervical lordosis. The unenhanced neck soft tissues are grossly unremarkable. The visualized lung apices are grossly clear. IMPRESSION: No acute fracture or subluxation of the cervical spine. Electronically signed by: Benny Haley MD 12/27/23 00:[address] 12/26/23 22:06 Exam(s): CT HEAD Without Contrast EXAM: CT Head Without Intravenous Contrast CLINICAL HISTORY: Reason for exam: found down seziure. TECHNIQUE: Axial computed tomography images of the head/brain without intravenous contrast. CTDI is 36.79 mGy and DLP is 624.41 mGy-cm. Automated exposure control was utilized for the study. A dose lowering technique was utilized adhering to the principles of ALARA. COMPARISON: No relevant prior studies available. FINDINGS: No acute intracranial hemorrhage. No midline shift or mass effect. The territorial dotson-white matter differentiation is maintained throughout. The ventricles and sulci are commensurate with age. The visualized orbits appear grossly unremarkable. The calvarium is intact. Right-sided paranasal sinus mucosal thickening, correlate for sinusitis. IMPRESSION: No acute intracranial hemorrhage, midline shift, or mass effect. Right-sided paranasal sinus mucosal thickening, correlate for sinusitis. Electronically signed by: Benny Haley MD 12/27/23 00:15 AM Supervising Physician Co-Signing Physician Notes Patient seen and examined, chart reviewed, case discussed with Dr. Hall and I agree with the assessment and plan as above Patient returns with recurrent seizure, intractable hiccups and pneumonia Somnolent on exam after receiving medications Non-focal Labs and images reviewed Assessment/Plan Continue Radha Sheridan started Treatment of PNA Check EEG Neuro consultation REmainder as above Resident Activity Tracking Resident Involvement: Resident Care Provided Care Provided: Adult Hospital Medicine (1) Nausea and vomiting Vomiting type: unspecified Qualified Code(s): R11.2 - Nausea with vomiting, unspecified"
[2023-12-27] MEDS: PANTOPRAZOLE BOLUS/DRIP IV STA (02:29)
[2023-12-27] MEDS ORDERED: POLYETHYLENE (MIRALAX) 17 GM PACK PO PRN (02:31)
[2023-12-27] MEDS ORDERED: Ativan IV Alcohol Withdrawal--Active Protocol IV PRN (02:31)
[2023-12-27] MEDS ORDERED: ALBUTEROL HFA 8 GM INHALER INH PRN (02:31)
[2023-12-27] MEDS ORDERED: LORazepam 2 MG in SYRINGE 1 ML IV PRN (02:31)
[2023-12-27] MEDS ORDERED: LORazepam 3 MG in SYRINGE 1.5 ML IV PRN (02:31)
[2023-12-27] MEDS ORDERED: DOCUSATE SODIUM 100 MG CAP PO PRN (02:31)
[2023-12-27] MEDS ORDERED: DICYCLOMINE HCL 20 MG TAB PO PRN (02:31)
[2023-12-27] MEDS ORDERED: LORazepam 1 MG in SYRINGE 0.5 ML IV PRN (02:31)
[2023-12-27] MEDS ORDERED: cloNIDine HCL 0.1 MG TAB PO PRN (02:31)
[2023-12-27] MEDS ORDERED: ALUMINUM/MAGNESIUM/SIMETH (MAALOX MAX) 30 ML UDC PO PRN (02:38)
[2023-12-27] MEDS ORDERED: bisacodyL 5 MG TABEC PO PRN (02:39)
[2023-12-27] MEDS: PIPERACILLIN/TAZOBACTAM 4.5 GM in DEXTROSE 5% MINI-B 100 ML IV STA (03:06)
[2023-12-27 05:41] LABS: Basophils # (auto) 0.03 K/uL (0.00-0.20); Basophils % (auto) 0.3 %; Eosinophils # (auto) 0.29 K/uL (0.00-0.50); Eosinophils % (auto) 3.1 %; Hematocrit (blood only) 39.9 % (42.0-52.0); Hemoglobin 13.5 g/dl (14.0-18.0); Immature Granulocytes # (auto) 0.03 K/uL (0.01-0.20); Immature Granulocytes % (auto) 0.3 %; Lymphocytes # (auto) 2.04 K/uL (1.20-3.40); Lymphocytes % (auto) 22.1 %; Mean Corpuscular Hemoglobin 28.4 pg (25.0-34.0); Mean Corpuscular Hgb Conc 33.8 g/dL (32.0-36.0); Mean Corpuscular Volume 83.8 fL (80.0-100.0); Mean Platelet Volume 9.1 fL (9.4-12.4); Monocytes # (auto) 0.59 K/uL (0.11-0.59); Monocytes % (auto) 6.4 %; Neutrophils # (auto) 6.27 K/uL (1.40-6.50); Neutrophils % (auto) 67.8 %; Platelet Count 327 K/uL (130-400); RDW Coefficient of Variation 13.5 % (11.5-14.5); RDW Standard Deviation 41.5 fL (36.4-46.3); Red Blood Count 4.76 M/uL (4.70-6.10); White Blood Count 9.25 K/ul (4.8-10.8)
[2023-12-27 05:48] LABS: Albumin Globulin Ratio 1.4 (0.9-2); Albumin Level 4.1 gm/dl (3.4-5.0); BUN Creatinine Ratio 11.4 (10-20); Bilirubin,Total 0.4 mg/dl (0.2-1.0); Creatinine Clr Calc Pharmacy 108.4 ml/min; Est GFR (African American) 107.6 ml/min; Est GFR (Non-African American) 92.8 ml/min; Globulin 2.9 gm/dl (2.5-4.0); Potassium 4.6 mmol/L (3.5-5.1)
--- NOTE | 2023-12-27 06:51 | XRay Report ---
XR abdomen 2V w PA chest CLINICAL HISTORY: vomiting TECHNIQUE: 2 views of the abdomen were obtained. A single view of the chest was obtained. Comparison: Comparison is made to chest radiograph 12/25/2023 FINDINGS: No lines and tubes are seen. The cardiomediastinal silhouette is normal. The lungs are clear. No evid ence of pleural effusion or pneumothorax. The osseous structures are grossly unremarkable. No gas-distended loops of small bowel are seen. A mo derate amount of stool is noted within the large bowel. IMPRESSION: Nonobstructive bowel gas pattern. ACT 112: Negative or not required by law. Electronically signed by: Dontae Giang M.D. 12/27/2023 6:50 AM
--- NOTE | 2023-12-27 08:37 | Neurology Consultation ---
Date of Consultation December 27, 2023 Assessment & Plan (1) Seizures: (2) Hiccups: (3) Alcohol use disorder: (4) Stimulant abuse: Plan 33-year-old male with a history of alcohol use disorder, history of stimulant abuse including cocaine and more recently methamphetamine. He began experiencing seizures in the context of alcohol withdrawal and stimulant abuse. Although his seizures are probably related to polysubstance use, he has been prescribed Depakote. He has had recurrent nausea, emesis, and hiccups. His hiccups began 3 days ago although are resolved this morning. I suspect the reason for his hiccups has been vagal irritation due to persistent nausea and emesis in the context of alcohol and stimulant withdrawal. Gastritis or other gastrointestinal pathology not excluded. He does not have signs or symptoms of delirium tremens at this time. He is not encephalopathic and has an intact neurological examination. Would continue with Depakote and Keppra IV as ordered for the time being. In reviewing his medication list from [facility], he was prescribed gabapentin 600 mg 3 times per day. (Discussed with nursing staff, should have this medication continued at 600 mg 3 times per day.) Metoclopramide is appropriate for hiccups. Gabapentin may also be used for hiccups and I would continue with his usual gabapentin prescription as above. EEG to be completed today. Would recommend MRI of the brain, seizure protocol, with and without IV contrast. (Order placed) I will advise further pending completion of the above MRI and EEG. History of Present Illness Reason for Consultation: seizures Requesting Physician: Isabel Attending Physician: Hector Robles History of Present Illness The patient is a 33-year-old male with a history of polysubstance abuse, alcohol, methamphetamine, marijuana, and seizure disorder (substance use related/alcohol withdrawal) on Depakote. He had presented to the [facility] emergency department December 21, from [facility], with a seizure occurring the previous evening. He had an unremarkable CT of the head. A urine toxicology screen was positive for marijuana and methamphetamine at that time. He was given an additional dose of IV Depakote and additional supportive care. He was discharged back to [facility] the following day. He presented again to the emergency department on December 24 from [facility] for refractory hiccups, emesis, and seizure. A CT of the head revealed severe pansinusitis and a moderate right mastoid effusion. A CT of the abdomen and pelvis was negative for intra-abdominal or intrapelvic abnormality although suggested a moderate right lower lobe pneumonia. A chest x-ray was unremarkable. Prescriptions for doxycycline, Augmentin, and Reglan were provided and he was discharged back to [facility]. He presented again to the emergency department last night from [facility] for recurrent seizures, observed by EMS, no postictal period. Another CT of the head was obtained which was unremarkable as well as a CT of the cervical spine. He has continued to have emesis. I discussed his case with the emergency department physician last night. Given his multiple presentations to the emergency department, I had recommended administering a Keppra loading dose. He was admitted to the hospital for further evaluation and management. He currently has orders for both Depakote, Keppra and Zosyn. I did independently review his recent CT of the head. There is no hemorrhage or obvious acute process. There is no hydrocephalus. There is no evidence of cerebral edema, mass effect or shift. The brain parenchyma appears grossly no rmal. Recent labs reviewed as well. CBC and comprehensive metabolic panel unremarkable. Magnesium level normal. Prolactin level not significantly elevated. Nursing notes indicate patient has been restless and nauseated overnight, his hiccups had stopped. This morning, the patient is awake, lying comfortably in bed. He is pleasant, nonagitated. He indicates he began having both alcohol withdrawal related seizures and cocaine induced seizures about 1 to 2 years ago while living in [place]. He had been in and out of various rehabilitation facilities and recalls having some neurological evaluation including EEG and possibly brain MRI. He recalls initial treatment with Keppra although this medication triggered anxiety and was subsequently discontinued in favor of Depakote. He states that the Depakote has been helping until about 3 weeks ago. He reports that he began drinking excessively again, several pints of liquor per day for about 1 month prior to admission to a rehab facility in [place]. He also reports more recent methamphetamine use. He indicates he was eventually transferred to [facility] rehab facility just prior to his multiple presentations to [facility] beginning on December 21. He denies a history of epilepsy or seizure disorder in childhood. He denies a family history of epilepsy in any immediate family members. He denies headache, neck pain, fever or chills. He indicates that he is hungry and would like to eat something. He denies belly pain or nausea at this time. He is relatively amnestic for his seizure episodes, no specific aura or warning sign reported. Allergies Allergy/AdvReac Type Severity Reaction Status Date / Time acetaminophen Allergy Intermediate Hives Verified 12/26/23 22:04 ibuprofen Allergy Intermediate Hives Verified 12/26/23 22:04 tramadol Allergy Intermediate Hives Verified 12/26/23 22:04 Home Medications Medication Instructions Recorded Confirmed Type albuterol sulfate 90 mcg/actuation 1 inh inhalation Q4H PRN Wheezing 12/22/23 12/26/23 History aerosol inhaler aluminum-mag hydroxide-simethicone 20 ml PO BID PRN INDIGESTION/GERD 12/22/23 12/26/23 History 200 mg-200 mg-20 mg/5 mL oral susp bacitracin 500 unit/gram topical 1 applic topical QID PRN SKIN 12/22/23 12/26/23 History ointment INFECTION/ABRASIONS bisacodyl 5 mg tablet 15 mg PO DAILY PRN Constipation 12/22/23 12/26/23 History calcium carbonate (Tums) 400 mg PO QID PRN 12/22/23 12/26/23 History INDIGESTION/DYSPEPSIA camphor-menthol 0.2 %-3.5 % 1 applic topical QID PRN Muscle 12/22/23 12/26/23 History topical gel Pain clonidine HCl 0.1 mg tablet 0.1 mg PO TID PRN 12/22/23 12/26/23 History ANXIETY/RESTLESSNESS/HR >70/BP >100/70 dicyclomine 20 mg tablet 20 mg PO TID PRN GI CRAMPS/SPASMS 12/22/23 12/26/23 History diphenhydramine HCl 25 mg capsule 25 - 50 mg PO Q6H PRN 12/22/23 12/26/23 History (Benadryl) ALLERGIES/RASH divalproex 500 mg tablet,extended 1,000 mg PO BID 12/22/23 12/26/23 History release 24 hr (Depakote ER) docusate sodium 100 mg capsule 100 mg PO DAILY PRN Constipation 12/22/23 12/26/23 History duloxetine 30 mg capsule,delayed 30 mg PO DAILY 12/22/23 12/26/23 History release eucalyptus-menthol oral mucosal 1 nessa mucous membrane Q2H PRN Sore 12/22/23 12/26/23 History lozenge Throat famotidine 20 mg tablet 20 mg PO DAILY 12/22/23 12/26/23 History gabapentin 300 mg capsule 90 mg PO TID 12/22/23 12/26/23 History guaifenesin 400 mg tablet (Mucus 400 mg PO Q6H PRN COUGH/MUCUS 12/22/23 12/26/23 History Relief) hydrocortisone 1 % topical cream 1 applic topical BID PRN AFFECTED 12/22/23 12/26/23 History AREA hydroxyzine pamoate 50 mg capsule 50 mg PO TID PRN Anxiety 12/22/23 12/26/23 History loperamide 2 mg tablet (Imodium 4 mg PO BID PRN Diarrhea 12/22/23 12/26/23 History A-D) loratadine 10 mg tablet (Claritin) 10 mg PO DAILY PRN SEASONAL 12/22/23 12/26/23 History ALLERGIES magnesium hydroxide 400 mg/5 mL 30 ml PO DAILY PRN Constipation 12/22/23 4 History oral suspension (Milk of Magnesia) melatonin 5 mg tablet 5 mg PO HS PRN Sleep 12/22/23 12/26/23 History multivitamin 1 tab PO DAILY 12/22/23 12/26/23 History naloxone 4 mg/actuation nasal spray 4 mg intranasal DIRECTED PRN 12/22/23 12/26/23 History OPIATE OVERDOSE naproxen 500 mg tablet 500 mg PO BID PRN Pain 12/22/23 12/26/23 History ondansetron HCl 8 mg tablet 8 mg PO Q8H PRN NAUSEA/VOMITING 12/22/23 12/26/23 History polyethylene glycol 3350 17 17 g PO DAILY PRN Constipation 12/22/23 12/26/23 History gram/dose oral powder (Miralax) prazosin 1 mg capsule 2 mg PO HS 12/22/23 12/26/23 History simethicone 80 mg chewable tablet 160 mg PO BID PRN GAS/CRAMPS 12/22/23 12/26/23 History trazodone 50 mg tablet 50 mg PO HS 12/22/23 12/26/23 History vitamin A and D 1 applic topical QID PRN SKIN 12/22/23 12/26/23 History IRRITATION/PROTECTION doxycycline hyclate 100 mg capsule 100 mg PO BID 7 days #14 caps 12/25/23 12/26/23 Rx metoclopramide HCl 5 mg tablet 5 mg PO BID PRN hiccups #14 tabs 12/25/23 12/26/23 Rx (Reglan) amoxicillin 875 mg-potassium 1 tab PO BIDM 12/26/23 12/26/23 History clavulanate 125 mg tablet pantoprazole 20 mg tablet,delayed 20 mg PO DAILY 12/26/23 12/26/23 History release promethazine 25 mg/mL injection 12.5 mg IM ONCE 12/26/23 12/26/23 History solution Patient History Medical History (Updated 12/27/23 @ 09:34 by Chidi Ricardo MD) Pneumonia Hiccups History of drug abuse Vomiting Alcohol withdrawal Withdrawal seizures Social History Smoking Status: Current every day smoker Tobacco Type: Cigarettes Second Hand Exposure: Yes; Do You Dip or Chew Tobacco: No; Tobacco Cessation Education Requested by Patient: No Hx Alcohol Use: Yes Alcohol type: hard liquor Hx Substance Use: Yes Last Used Substance: Unknown Preferred Language: Jordanian Communication Ability: Effective Project Structural Engineer Required: No Beliefs That Will Affect Care: None Current Living Situation: Rehab and Other Current Living Situation Comment: [facility] Feels Safe at Home: Yes Safety Concerns: Feels Safe At This Time Assistive Devices: None Review of Systems Constitutional: no fever and no chills Eyes: no blind spots and no diplopia Ear, Nose, Mouth, Throat: no hearing loss Respiratory: no cough and no dyspnea Cardiovascular: no chest pain and no palpitations Gastrointestinal: as per Subjective / HPI and + vomiting; no abdominal pain Genitourinary: no dysuria Musculoskeletal: no neck pain, no myalgia and no muscle weakness Integumentary: no rash and no lesions Neurologic: as per Subjective / HPI; no gait abnormality, no localized weakness, no loss of sensation, no lack of coordination, no abnormal movements, no headache(s), no abnormal speech, no confusion and no memory loss Psychiatric: no depression, no anxiety and no hallucinations Hematologic / Lymphatic: no easy bleeding and no easy bruising Exam (Neuro) Constitutional: well developed; no acute distress Eyes: normal visual [place] by confrontation, PERRL and EOM intact bilaterally; no nystagmus Neurologic: Oriented to:: Person, Place and Time Memory: Short Term Intact and Remote Intact Attention: Span Intact and Concentration Intact Speech Fluency: negative Dysarthria or Dysfluency Speech Aphasia: negative Aphasia Fund of Knowledge: Current Events, Past History and Vocabulary Cranial Nerves: Normal II, III, IV, , V, VII, VIII, IX, X, XI and XII Motor Strength: Normal Lower Extremities and Normal Upper Extremities Motor Tone: Normal Lower Extremities and Normal Upper Extremities Muscle Bulk/Involuntary Movements: No Involuntary Movements; negative Muscle Atrophy Sensation: Light Touch Intact, Pain/Temperature Intact and Proprioception Intact Coordination: Normal; negative Limited Balance, Dysdiadochokinesia, Finger-Nose Abnormal or Heel-Harris Abnormal Deep Tendon Reflexes: Rt Triceps: 2+, Lt Triceps: 2+, Rt Biceps: 2+, Lt Biceps: 2+, Rt Brachioradialis: 2+, Lt Brachioradialis: 2+, Rt Patellar: 2+, Lt Patellar: 2+, Rt Ankle: 2+ and Lt Ankle: 2+ Special Tests: negative Babinski Present Details: Gait not tested, seizure precautions in place. No hiccups observed. Results & Data Vital Signs (Past 12 Hours) Vital Signs Temp Pulse Pulse Resp BP BP Pulse Ox 12/27/23 07:40 36.6 C 74 17 111/66 100 12/27/23 03:00 69 12/27/23 02:31 12/27/23 02:19 36.2 C L 56 L 16 144/81 H 100 12/27/23 01:12 71 16 144/72 H 100 12/27/23 00:36 72 14 142/83 H 98 12/27/23 00:34 74 12/27/23 00:03 66 14 167/105 H 100 12/26/23 23:39 69 14 148/84 H 100 12/26/23 23:03 73 15 144/80 H 99 12/26/23 21:30 92 H 20 146/113 H 100 12/26/23 20:59 85 18 100 12/26/23 20:41 107 H 12/26/23 20:40 37.3 C 84 18 117/78 100 12/26/23 20:40 99 12/26/23 20:40 37.3 C 78 15 117/78 99 O2 Del Method 12/27/23 07:40 Room Air 12/27/23 03:00 12/27/23 02:31 Room Air 12/27/23 02:19 Room Air 12/27/23 01:12 Room Air 12/27/23 00:36 Room Air 12/27/23 00:34 12/27/23 00:03 Room Air 12/26/23 23:39 Room Air 12/26/23 23:03 Room Air 12/26/23 21:30 Room Air 12/26/23 20:59 Room Air 12/26/23 20:41 12/26/23 20:40 Room Air 12/26/23 20:40 Room Air 12/26/23 20:40 Room Air Coding Level of Care Code 24427 INT INP/OBS CARE 3/75MIN Diagnoses Seizures R56.9 Hiccups R06.6 Alcohol use disorder F10.90 Stimulant abuse F15.10 Time Spent (min) 90 Comment Total time includes patient contact, chart review, counseling, note preparation
[2023-12-27] MEDS ORDERED: levETIRAcetam 500 MG TAB PO SCH (09:00)
[2023-12-27] MEDS ORDERED: DIVALPROEX EXTENDED RELEASE 500 MG TAB PO SCH (09:00)
[2023-12-27] MEDS ORDERED: DEXTROSE 5% IV SCH (09:00)
[2023-12-27] MEDS ORDERED: VALPROATE SOD IV SCH (09:00)
[2023-12-27] MEDS: METOCLOPRAMIDE HCL INJ 5 MG/ML 2 ML VIAL IV PRN (10:25)
[2023-12-27] MEDS: levETIRAcetam IV 1,000 MG in 0.9 % SODIUM CHLORIDE 100 ML IV SCH ×2 (10:25→21:37)
[2023-12-27] MEDS: PIPERACILLIN/TAZOBACTAM 4.5 GM in DEXTROSE 5% MINI-B 100 ML IV SCH (10:28)
[2023-12-27] MEDS: DULoxetine HCL 30 MG CAP PO SCH (10:28)
[2023-12-27] MEDS: GABAPENTIN 300 MG CAP PO SCH ×2 (10:28→16:25)
[2023-12-27] MEDS: VALPROATE SOD 500 MG in DEXTROSE 5% 50 ML IV SCH ×2 (11:07→21:37)
[2023-12-27 11:32] LABS: Amphetamines+Metham, Urine Neg (Neg); Barbiturates, Urine Neg (Neg); Benzodiazepine, Urine Pos (Neg); Cocaine, Urine Neg (Neg); Fentanyl, Urine Neg (Neg); MDMA (Ecstacy), Urine Neg (Neg); Marijuana, Urine Pos (Neg); Methadone, Urine Neg (Neg); Opiate, Urine Neg (Neg); Phencyclidine, Urine Neg (Neg)
--- NOTE | 2023-12-27 11:39 | Electrocardiogram Report ---
Test Reason : Blood Pressure : / mmHG Vent. Rate : 091 BPM Atrial Rate : 091 BPM P-R Int : 132 ms QRS Dur : 090 ms QT Int : 354 ms P-R-T Axes : 086 081 064 degrees QTc Int : 435 ms Normal sinus rhythm Right atrial enlargement Borderline ECG When compared with ECG of 25-DEC-2023 18:01, No significant change was found Confirmed by Rodolfo Raya ([id number]) on 12/27/2023 11:39:09 AM Referred By: Ami Cantu Confirmed By:Rodolfo Raya
--- NOTE | 2023-12-27 12:42 | Electroencephalogram ---
EEG Procedure Note Date of Service December 27, 2023 Start / End Times Start Time: 11:53 AM End Time: 12:13 AM Referring Physician Chidi Ricardo MD History Seizure disorder, polysubstance abuse Home Medication List Medication Instructions Recorded Confirmed Type albuterol sulfate 90 mcg/actuation 1 inh inhalation Q4H PRN Wheezing 12/22/23 12/26/23 History aerosol inhaler aluminum-mag hydroxide-simethicone 20 ml PO BID PRN INDIGESTION/GERD 12/22/23 12/26/23 History 200 mg-200 mg-20 mg/5 mL oral susp bacitracin 500 unit/gram topical 1 applic topical QID PRN SKIN 12/22/23 12/26/23 History ointment INFECTION/ABRASIONS bisacodyl 5 mg tablet 15 mg PO DAILY PRN Constipation 12/22/23 12/26/23 History calcium carbonate (Tums) 400 mg PO QID PRN 12/22/23 12/26/23 History INDIGESTION/DYSPEPSIA camphor-menthol 0.2 %-3.5 % 1 applic topical QID PRN Muscle 12/22/23 12/26/23 History topical gel Pain clonidine HCl 0.1 mg tablet 0.1 mg PO TID PRN 12/22/23 12/26/23 History ANXIETY/RESTLESSNESS/HR >70/BP >100/70 dicyclomine 20 mg tablet 20 mg PO TID PRN GI CRAMPS/SPASMS 12/22/23 12/26/23 History diphenhydramine HCl 25 mg capsule 25 - 50 mg PO Q6H PRN 12/22/23 12/26/23 History (Benadryl) ALLERGIES/RASH divalproex 500 mg tablet,extended 1,000 mg PO BID 12/22/23 12/26/23 History release 24 hr (Depakote ER) docusate sodium 100 mg capsule 100 mg PO DAILY PRN Constipation 12/22/23 12/26/23 History duloxetine 30 mg capsule,delayed 30 mg PO DAILY 12/22/23 12/26/23 History release eucalyptus-menthol oral mucosal 1 nessa mucous membrane Q2H PRN Sore 12/22/23 12/26/23 History lozenge Throat famotidine 20 mg tablet 20 mg PO DAILY 12/22/23 12/26/23 History gabapentin 300 mg capsule 90 mg PO TID 12/22/23 12/26/23 History guaifenesin 400 mg tablet (Mucus 400 mg PO Q6H PRN COUGH/MUCUS 12/22/23 12/26/23 History Relief) hydrocortisone 1 % topical cream 1 applic topical BID PRN AFFECTED 12/22/23 12/26/23 History AREA hydroxyzine pamoate 50 mg capsule 50 mg PO TID PRN Anxiety 12/22/23 12/26/23 History loperamide 2 mg tablet (Imodium 4 mg PO BID PRN Diarrhea 12/22/23 12/26/23 History A-D) loratadine 10 mg tablet (Claritin) 10 mg PO DAILY PRN SEASONAL 12/22/23 12/26/23 History ALLERGIES magnesium hydroxide 400 mg/5 mL 30 ml PO DAILY PRN Constipation 12/22/23 12/26/23 History oral suspension (Milk of Magnesia) melatonin 5 mg tablet 5 mg PO HS PRN Sleep 12/22/23 12/26/23 History multivitamin 1 tab PO DAILY 12/22/23 12/26/23 History naloxone 4 mg/actuation nasal spray 4 mg intranasal DIRECTED PRN 12/22/23 12/26/23 History OPIATE OVERDOSE naproxen 500 mg tablet 500 mg PO BID PRN Pain 12/22/23 12/26/23 History ondansetron HCl 8 mg tablet 8 mg PO Q8H PRN NAUSEA/VOMITING 12/22/23 12/26/23 History polyethylene glycol 3350 17 17 g PO DAILY PRN Constipation 12/22/23 12/26/23 History gram/dose oral powder (Miralax) prazosin 1 mg capsule 2 mg PO HS 12/22/23 12/26/23 History simethicone 80 mg chewable tablet 160 mg PO BID PRN GAS/CRAMPS 12/22/23 12/26/23 History trazodone 50 mg tablet 50 mg PO HS 12/22/23 12/26/23 History vitamin A and D 1 applic topical QID PRN SKIN 12/22/23 12/26/23 History IRRITATION/PROTECTION doxycycline hyclate 100 mg capsule 100 mg PO BID 7 days #14 caps 12/25/23 12/26/23 Rx metoclopramide HCl 5 mg tablet 5 mg PO BID PRN hiccups #14 tabs 12/25/23 12/26/23 Rx (Reglan) amoxicillin 875 mg-potassium 1 tab PO BIDM 12/26/23 12/26/23 History clavulanate 125 mg tablet pantoprazole 20 mg tablet,delayed 20 mg PO DAILY 12/26/23 12/26/23 History release promethazine 25 mg/mL injection 12.5 mg IM ONCE 12/26/23 12/26/23 History solution Inpatient Medication List Duloxetine HCl (Duloxetine Hcl 30 Mg Cap) 30 mg PO DAILY [facility]ISA Stop: 01/26/24 08:59 Last Admin: 12/27/23 10:28 Dose: Not Given Documented By: AMB Gabapentin (Gabapentin 300 Mg Cap) 90 mg PO TID [facility] Stop: 01/26/24 08:59 Last Admin: 12/27/23 10:28 Dose: Not Given Documented By: AMB Sodium Chloride (Nss) 1,000 mls @ 125 mls/hr IV .Q8H [facility] Stop: 01/25/24 20:59 Last Admin: 12/27/23 05:22 Dose: 125 mls/hr Documented By: Infusion: 12/27/23 05:12 Dose: Infused Documented By: Admin: 12/26/23 21:12 Dose: 125 mls/hr Documented By: TATA Pantoprazole Sodium 40 mg/ (Dextrose) 100 mls @ 20 mls/hr IV Q5H [facility] Stop: 01/25/24 23:44 Last Admin: 12/27/23 10:25 Dose: 8 mg/hr, 20 mls/hr Documented By: Infusion: 12/27/23 09:21 Dose: Infused Documented By: Admin: 12/27/23 04:21 Dose: 8 mg/hr, 20 mls/hr Documented By: Infusion: 12/27/23 04:21 Dose: Infused Documented By: Admin: 12/26/23 23:54 Dose: 8 mg/hr, 20 mls/hr Documented By: TIA Piperacillin Sod/Tazobactam (Sod 4.5 gm/ Dextrose) 100 mls @ 25 mls/hr IV Q8H [facility]; Protocol Stop: 01/03/24 07:59 Last Admin: 12/27/23 10:28 Dose: 25 mls/hr Documented By: AMB Levetiracetam 1,000 mg/ Sodium (Chloride) 110 mls @ 440 mls/hr IV Q12H [facility] Stop: 01/26/24 08:59 Last Infusion: 12/27/23 11:12 Dose: Infused Documented By: Admin: 12/27/23 10:25 Dose: 440 mls/hr Documented By: KIKO Valproic Acid 500 mg/ Dextrose 55 mls @ 55 mls/hr IV Q6H [facility] Stop: 01/26/24 09:59 Last Admin: 12/27/23 11:07 Dose: 55 mls/hr Documented By: KIKO Metoclopramide HCl (Metoclopramide Hcl Inj 5 Mg/Ml 2 Ml Vial) 5 mg IV Q6H PRN PRN Reason: Nausea or hiccups Stop: 01/26/24 02:30 Last Admin: 12/27/23 10:25 Dose: 5 mg Documented By: KIKO Discontinued Medications Diphenhydramine HCl (Diphenhydramine 50 Mg/Ml Vial) 25 mg IV NOW STA Stop: 12/26/23 21:19 Last Admin: 12/26/23 21:24 Dose: 25 mg Documented By: TATA Diphenhydramine HCl (Diphenhydramine 50 Mg/Ml Vial) 25 mg IV NOW STA Stop: 12/26/23 21:52 Last Admin: 12/26/23 21:56 Dose: 25 mg Documented By: TATA Haloperidol Lactate (Haloperidol Lactate 5 Mg/Ml 1 Ml Vial) 5 mg IM NOW STA Stop: 12/26/23 21:52 Last Admin: 12/26/23 21:56 Dose: 5 mg Documented By: TATA Pantoprazole Sodium 80 mg/ (Dextrose) 120 mls @ 480 mls/hr IV NOW ONE Stop: 12/26/23 23:33 Last Infusion: 12/26/23 23:58 Dose: Infused Documented By: Admin: 12/26/23 23:34 Dose: 480 mls/hr Documented By: TIA Piperacillin Sod/Tazobactam (Sod 4.5 gm/ Dextrose) 100 mls @ 200 mls/hr IV ONE STA; Protocol Stop: 12/27/23 03:09 Last Infusion: 12/27/23 03:38 Dose: Infused Documented By: Admin: 12/27/23 03:06 Dose: 200 mls/hr Documented By: MELANIA Levetiracetam (Levetiracetam 500 Mg/5 Ml Vial) 1,650 mg 20 mg/kg (1650 mg) IV NOW STA Stop: 12/26/23 23:02 Last Admin: 12/26/23 23:09 Dose: 1,650 mg Documented By: TIA Lorazepam (Lorazepam 1 Mg/1 Ml Syr Ed Inj Use) 1 mg IV ONE STA Stop: 12/26/23 23:58 Last Admin: 12/27/23 00:00 Dose: 1 mg Documented By: TIA Metoclopramide HCl (Metoclopramide Hcl Inj 5 Mg/Ml 2 Ml Vial) 5 mg IV ONE ONE Stop: 12/26/23 21:19 Last Admin: 12/26/23 21:24 Dose: 5 mg Documented By: TATA Ondansetron HCl (Ondansetron Inj 2 Mg/Ml 2 Ml Vial) Confirm Administered Dose 4 mg .ROUTE .STK-MED ONE Stop: 12/26/23 20:44 Last Admin: 12/26/23 20:46 Dose: Not Given Documented By: TATA Ondansetron HCl (Ondansetron Inj 2 Mg/Ml 2 Ml Vial) 4 mg IV NOW STA Stop: 12/26/23 20:46 Last Admin: 12/26/23 20:46 Dose: 4 mg Documented By: TATA Pantoprazole Sodium (Pantoprazole Bolus/Drip) 1 each IV NOW STA Stop: 12/26/23 23:20 Last Admin: 12/27/23 02:29 Dose: Not Given Documented By: MELANIA Description This is a 21 electrode EEG with a single channel dedicated to limited EKG. The electrodes were placed in accordance with the International 10-20 system. There is a posterior dominant rhythm of 8 to 9 Hz which is symmetrically distributed and attenuates with eye opening. There is a normal anterior to posterior organization. Towards the end of photic stimulation there was a potential epileptiform discharge characterized by a 2 second burst of left frontotemporal polyspikes with associated brief rapid rhythmic teeth chattering observed on video, followed by generalized theta slowing. There is a symmetric frontal beta rhythm. There is intermittent movement artifact. He appeared to be sleeping for the majority of the study. No vertex waves or sleep spindles observed, however. Interpretation Potentially abnormal awake/sleepy EEG with evidence of a photic induced paroxysmal event localizing to the left frontotemporal region. Results potentially suggestive of focal onset seizure disorder. [facility] EEG Procedure Codes Indication for Procedure (1) Seizures: Neurology Neurology: 38777 EEG include record awake & sleepy
[2023-12-27] MEDS: GADOBUTROL 65ML VIAL IV ONE (14:39)
--- NOTE | 2023-12-27 15:00 | Magnetic Resonance Report ---
MR brain seizure wo/w con CLINICAL HISTORY: seizure TECHNIQUE: Multiplanar and multisequence MR images of the brain were obtained prior to and following administration of gadolinium contrast. Comparison: Comparison is made to CT head 12/26/2023 FINDINGS: No abnormal restricted diffusion is identified. The white matter is unremarkable. The ventricular sys tem is normal in appearance.No mass or abnormal enhancement is seen. There is no mass effect or midli ne shift. There is no evidence of acute intraparenchymal hemorrhage. No extra axial fluid collections are seen. The corpus callosum, pituitary gland, and cerebellar tonsils appear grossly unremarkable. High-resolution images of the temporal lobes do not demonstrate any signal abnormality. Flow voids of the major intracranial arterial vessels are identified. Minimal thickening of the sinus es is seen. IMPRESSION: No acute abnormality. In particular, no edema in the temporal lobes bilaterally in this postictal pat ient. ACT 112: Negative or not required by law. Electronically signed by: Dontae Giang M.D. 12/27/2023 2:58 PM
[2023-12-27] MEDS: DIVALPROEX EXTENDED RELEASE 500 MG TAB PO SCH (20:32)
[2023-12-27] MEDS: traZODone HCL 50 MG TAB PO SCH (20:33)
[2023-12-27] MEDS: levETIRAcetam 500 MG TAB PO SCH (20:33)
[2023-12-27] MEDS: PRAZOSIN HCL 1 MG CAP PO SCH (20:34)
--- NOTE | 2023-12-27 22:10 | Billing Data ---
Date of Service December 26, 2023 Coding Level of Care Code 98910 INT INP/OBS CARE
--- NOTE | 2023-12-28 03:28 | Communication Note ---
Date of Service: December 28, 2023 Was notified by nursing that immediately after 21:00 medications were given, patient had an episode of emesis. Nursing noted several pills in the emesis but is unable to confirm which medications may have been vomited. As his antiepileptic medications were included in these medications, I ordered new doses of IV Keppra and Depakote to ensure he received these medications as he is currently admitted due to recurrent seizures. Resident Activity Tracking Resident Involvement: Resident Care Provided Care Provided: Adult Hospital Medicine
[2023-12-28 06:29] LABS: Hemoglobin 12.2 g/dl (14.0-18.0); Mean Corpuscular Hemoglobin 28.1 pg (25.0-34.0); Mean Corpuscular Volume 85.3 fL (80.0-100.0); Platelet Count 302 K/uL (130-400); RDW Coefficient of Variation 13.4 % (11.5-14.5); RDW Standard Deviation 41.9 fL (36.4-46.3); Red Blood Count 4.34 M/uL (4.70-6.10); White Blood Count 5.42 K/ul (4.8-10.8)
[2023-12-28 06:52] LABS: Basophils # (auto) 0.03 K/uL (0.00-0.20); Basophils % (auto) 0.6 %; Eosinophils # (auto) 0.32 K/uL (0.00-0.50); Eosinophils % (auto) 5.9 %; Immature Granulocytes # (auto) 0.01 K/uL (0.01-0.20); Immature Granulocytes % (auto) 0.2 %; Lymphocytes # (auto) 2.75 K/uL (1.20-3.40); Lymphocytes % (auto) 50.7 %; Monocytes % (auto) 7.4 %; Neutrophils # (auto) 1.91 K/uL (1.40-6.50); Neutrophils % (auto) 35.2 %
[2023-12-28 06:57] LABS: Albumin Globulin Ratio 1.4 (0.9-2); Albumin Level 3.6 gm/dl (3.4-5.0); BUN Creatinine Ratio 8.5 (10-20); Bilirubin,Total 0.4 mg/dl (0.2-1.0); Calcium 8.4 mg/dl (8.6-10.3); Creatinine Clr Calc Pharmacy 120.5 ml/min; Est GFR (Non-African American) 106.1 ml/min; Globulin 2.5 gm/dl (2.5-4.0); Potassium 4.1 mmol/L (3.5-5.1); Total Protein 6.1 gm/dl (6.0-8.3)
--- NOTE | 2023-12-28 14:07 | Discharge Summary ---
"Discharge Summary Date of Service December 28, 2023 Principal Dx & Hospital Course #1 = Principal Diagnosis (1) Nausea and vomiting: (2) Seizure-like activity: (3) Seizure: (4) Alcohol withdrawal: (5) Epilepsy: (6) Seizures: Plan Recurrent Seizures | Epilepsy -Received IV Keppra in ED, as well as Ativan, Haldol for agitation and hiccups -Continue home Depakote, per med rec patient is no longer taking [place]. -Neurology consulted, appreciate recommendations. Plan is to resume medications once patient is able to tolerate his home medications. Symptoms likely exacerbated by patient not being able to tolerate PO seizure medications Symptoms improved and patient was able to tolerate oral medications Pneumonia | Possible Aspiration -Evidence of possible R lower lobe infiltrate on imaging from 12/24, was discharged on Augmentin and doxy -Will order Zosyn while admitted to additional coverage as due to frequent vomiting he is at risk for aspiration -Currently on room air with appropriate oxygen saturations, afebrile -resume outpatient antibiotics Hematemesis | Hiccups -Noted to have wretching and vomiting in ED as well as intractable hiccups -Reglan ordered PRN for hiccups and nausea -hemoglobin was stable. Admission HPI Per Admitting Provider Charly is a 33 year-old male with a past medical history of withdrawal seizure, methamphetamine use, alcohol use disorder, and cocaine use. He has been seen at [facility] on multiple occasions for active seizures this past week. He admitted to [facility] on 12/21 and discharged on 12/22, he also was seen on 12/24 in the ED and subsequently discharged back to [facility] on the same day. History was obtained from chart review as patient was very drowsy during the exam after receiving Ativan/Benadryl/Haldol. Per ED note, patient had 4 seizures today at [facility] and an additional seizure with tonic-clonic jerks witnessed by EMS which self resolved and had no post-ictal state. Patient has reportedly also had ongoing hiccups as well as vomiting with some blood. ED doctor spoke with on-call neurologist who recommended a Keppra load and admission due to the frequency of his seizures and multiple presentations to ED for same symptoms. On chart review, imaging on 12/24 showed possible right lower lobe infiltrate as well as sinusitis so patient was discharged on a course of Augmentin and doxycycline. ED Course: -IV Benadryl x2, Haldol, Ativan -IV Keppra -CT head, CT c-spine, KUB Discharge Exam Constitutional: average body habitus and + lethargic; no acute distress Eyes: + anicteric sclerae and PERRL; no conjunctival abnormality ENMT: Ears: no external ear abnormality Nose: no external nose abnormality Moist mucous membranes Respiratory: normal respiratory effort; no respiratory distress and does not use accessory muscles Anterior lung [place] clear, exam limited due to patient position Cardiovascular: Rate/Rhythm: regular rate and regular rhythm Extremities: no edema Gastrointestinal (Abdomen): Inspection/Auscultation: abdomen not distended Percussion/Palpation: abdomen soft; no guarding Skin: no rashes, warm and dry Psychiatric: Unable to assess due to somnolence as result of medications Updated Medication List Medication Instructions Recorded Confirmed Type albuterol sulfate 90 mcg/actuation 1 inh inhalation Q4H PRN Wheezing 12/22/23 12/26/23 History aerosol inhaler aluminum-mag hydroxide-simethicone 20 ml PO BID PRN INDIGESTION/GERD 12/22/23 12/26/23 History 200 mg-200 mg-20 mg/5 mL oral susp bacitracin 500 unit/gram topical 1 applic topical QID PRN SKIN 12/22/23 12/26/23 History ointment INFECTION/ABRASIONS bisacodyl 5 mg tablet 15 mg PO DAILY PRN Constipation 12/22/23 12/26/23 History calcium carbonate (Tums) 400 mg PO QID PRN 12/22/23 12/26/23 History INDIGESTION/DYSPEPSIA camphor-menthol 0.2 %-3.5 % 1 applic topical QID PRN Muscle 12/22/23 12/26/23 History topical gel Pain clonidine HCl 0.1 mg tablet 0.1 mg PO TID PRN 12/22/23 12/26/23 History ANXIETY/RESTLESSNESS/HR >70/BP >100/70 dicyclomine 20 mg tablet 20 mg PO TID PRN GI CRAMPS/SPASMS 12/22/23 12/26/23 History diphenhydramine HCl 25 mg capsule 25 - 50 mg PO Q6H PRN 12/22/23 12/26/23 History (Benadryl) ALLERGIES/RASH divalproex 500 mg tablet,extended 1,000 mg PO BID 12/22/23 12/26/23 History release 24 hr (Depakote ER) docusate sodium 100 mg capsule 100 mg PO DAILY PRN Constipation 12/22/23 12/26/23 History duloxetine 30 mg capsule,delayed 30 mg PO DAILY 12/22/23 12/26/23 History release eucalyptus-menthol oral mucosal 1 nessa mucous membrane Q2H PRN Sore 12/22/23 12/26/23 History lozenge Throat famotidine 20 mg tablet 20 mg PO DAILY 12/22/23 12/26/23 History guaifenesin 400 mg tablet (Mucus 400 mg PO Q6H PRN COUGH/MUCUS 12/22/23 12/26/23 History Relief) hydrocortisone 1 % topical cream 1 applic topical BID PRN AFFECTED 12/22/23 12/26/23 History AREA hydroxyzine pamoate 50 mg capsule 50 mg PO TID PRN Anxiety 12/22/23 12/26/23 History loperamide 2 mg tablet (Imodium 4 mg PO BID PRN Diarrhea 12/22/23 12/26/23 History A-D) loratadine 10 mg tablet (Claritin) 10 mg PO DAILY PRN SEASONAL 12/22/23 12/26/23 History ALLERGIES magnesium hydroxide 400 mg/5 mL 30 ml PO DAILY PRN Constipation 12/22/23 12/26/23 History oral suspension (Milk of Magnesia) melatonin 5 mg tablet 5 mg PO HS PRN Sleep 12/22/23 12/26/23 History multivitamin 1 tab PO DAILY 12/22/23 12/26/23 History naloxone 4 mg/actuation nasal spray 4 mg intranasal DIRECTED PRN 12/22/23 12/26/23 History OPIATE OVERDOSE naproxen 500 mg tablet 500 mg PO BID PRN Pain 12/22/23 12/26/23 History ondansetron HCl 8 mg tablet 8 mg PO Q8H PRN NAUSEA/VOMITING 12/22/23 12/26/23 History polyethylene glycol 3350 17 17 g PO DAILY PRN Constipation 12/22/23 12/26/23 History gram/dose oral powder (Miralax) prazosin 1 mg capsule 2 mg PO HS 12/22/23 12/26/23 History simethicone 80 mg chewable tablet 160 mg PO BID PRN GAS/CRAMPS 12/22/23 12/26/23 History trazodone 50 mg tablet 50 mg PO HS 12/22/23 12/26/23 History vitamin A and D 1 applic topical QID PRN SKIN 12/22/23 12/26/23 History IRRITATION/PROTECTION doxycycline hyclate 100 mg capsule 100 mg PO BID 7 days #14 caps 12/25/23 12/26/23 Rx metoclopramide HCl 5 mg tablet 5 mg PO BID PRN hiccups #14 tabs 12/25/23 12/26/23 Rx (Reglan) amoxicillin 875 mg-potassium 1 tab PO BIDM 12/26/23 12/26/23 History clavulanate 125 mg tablet pantoprazole 20 mg tablet,delayed 20 mg PO DAILY 12/26/23 12/26/23 History release promethazine 25 mg/mL injection 12.5 mg IM ONCE 12/26/23 12/26/23 History solution gabapentin 300 mg capsule 300 mg PO TID #0 caps 12/28/23 12/26/23 Rx Hospital Stay Data Consultations 12/27/23 00:29 ED Decision to Admit Stat 12/27/23 02:31 Consult Neurology Routine Diagnostic Imagining Performed 12/26/23 22:06 CT cervical spine wo con Stat CT head/brain wo con Stat 12/27/23 09:56 MR brain seizure wo/w con Routine Pending Results Patient Have Any Pending Studies at Discharge: No Discharge Instructions Given to Patient (Per Discharging Provider) currently tolerating a full liquid diet. Can try soup for today and then a regualr meal tomorrow. Total Time Total Time Spent Total Time Spent (In Minutes): 32 Coding Level of Care Code 05618 INP/OBS DISCH >30 MIN Diagnoses Nausea and vomiting R11.2 Vomiting type: unspecified Seizure-like activity R56.9 Seizure R56.9 Alcohol withdrawal F10.939 Epilepsy G40.909 Seizures R56.9"
[2023-12-29 13:01] LABS: 7-Aminoclonaz, Confirm NEGATIVE ng/mL (<25); Hydro-Alp Ur, GC/MS NEGATIVE ng/mL (<25); Hydroxyethylflurazepam, Conf NEGATIVE ng/mL (<50); Hydroxymidazolam Ur, GC/MS NEGATIVE ng/mL (<50); Hydroxytriazolam NEGATIVE ng/mL (<50); Lorazepam, Ur GC/MS 234 ng/mL (<50); Marijuana Quant, GCMS Urine 50 ng/mL (<5); Nordiazepam, Confirm NEGATIVE ng/mL (<50); Oxazepam Ur, GC/MS 499 ng/mL (<50); Temazepam, Confirm 146 ng/mL (<50)
== END 2023-12-28 15:40 | disposition alcohol treatment (31) ==
LOC: SUATTDRO → 4W 20:28 → ED 20:28 → SUATTDRO 12-27 01:21 → 4W 12-27 01:53